=== PATIENT | female | born 1980 | race Caucasian/White ===

== ENCOUNTER 2024-01-29 09:51 | Outpatient (CLI) | payer BC, SELFPAY ==
--- OUTSIDE RECORDS SUMMARY | 2024-01-29 09:56 | XMS_ITS | Clinical Summary ---
Author Organization [facility] Address [place], [place] [address] Care Team Providers Care Cell Lead Name Role Phone Faith Fisher MD Primary Care Provider Allergies Active Allergy Reactions Criticality Noted Date Comments Shellfish Containing Products Itching 2015 Medications Medication Sig Dispensed Refills Start Date End Date Status magnesium citrate 100 mg tab Take by mouth. Active cyanocobalamin (Vitamin B-12) 1,000 mcg tabletIndications:Kiana min B12 deficiency Take 1 Tablet (1,000 mcg) by mouth once daily. 90 Tablet 3 01/02/2021 Active LORazepam (ATIVAN) 0.5 mg tabIndications:General ized anxiety disorder,Panic attacks Take 1 Tablet (0.5 mg) by mouth every 6 hours if needed for Anxiety. 20 Tablet 12/18/2023 Active traZODone (DESYREL) 50 mg tabletIndications:Inso mnia, unspecified type Take 1 Tablet (50 mg) by mouth at bedtime. 90 Tablet 3 12/18/2023 Active Active Problems Problem Noted Date Diagnosed Date Panic attacks 04/20/2023 Insomnia 04/20/2023 Vitamin B12 deficiency 01/02/2021 PMDD (premenstrual dysphoric disorder) Generalized anxiety disorder 12/30/2020 Kidney stone 10/25/2007 Overview (10/29/2007): CT 10/25/2007: 1. Bilateral renal collecting system stones, without current definite evidence of obstruction. The largest stone on the left measures 11 x 5 mm and 13,075 Hounsfield units. At least four additional developing papillary tip stones are seen within the left kidney. 2. Several nonobstructing, developing stones within the right renal collecting system, the largest of which estimates 4 x 2 mm. At least five additional nonobstructing stones are within the right kidney. 3. At least three, 1-cm or less cysts within the right kidney. 4. T-type IUD in situ. Dysthymic disorder 08/01/2007 Pap smear for cervical cancer screening 08/11/19 06 Overview (12/24/2023): 08/2005 ASCUS/HPV + 09/2005 colposcopy: DEON I, age 25 04/2006 ASCUS 11/2011 NIL 08/2014 NIL 12/2020 ASCUS, HPV negative 12/2023 NIL/HPV negative. Plan: Pap/HPV due 12/2028 Resolved Problems Problem Noted Date Diagnosed Date Resolved Date Anxiety 03/23/2023 12/18/2023 Supervision of other normal 08/22/2005 06/16/2022 Encounters Date Type Department Care Team Description 01/22/2024 3:15 PM ACTUARIAL TECHNICIAN Ancillary Procedure [facility] [address] [place] [address] 01/22/2024 2:30 PM ACTUARIAL TECHNICIAN Ancillary Procedure [facility] [address] [place] [address] 01/22/[address] [facility] [address] [place] [address] Faith Fisher MD 01/22/2024 Travel 01/16/2024 12:00 PM ACTUARIAL TECHNICIAN Office Visit [facility] [address] [place] [address] Tony Angel OD Follow Up (Prism Evaluation ) 01/16/2024 Travel 01/03/[address] [facility] [address] [place] [address] Tech, Mammo Results 01/03/[address] [facility] [address] [place] [address] Tech, Mammo Results 01/01/2024 7:20 AM CDT Ancillary Procedure [facility] [address] [place] [address] 01/01/2024 Travel 12/28/2023 11:00 AM CDT Office Visit [facility] [address] [place] [address] Reid Weston MD Consult (Vision changes OU) 12/28/2023 Travel 12/26/2023 4:00 PM CDT Ancillary Procedure [facility] [address] [place] [address] 12/26/2023 Travel 12/18/2023 9:40 AM CDT Office Visit [facility] [address] [place] [address] Faith Fisher MD Physical (With pap); Consult (weight gain, perimenapause symptoms, heavy periods sometimes twice a month, bad cramps, pain during intercourse, check hormone levels, blood sugar, blood pressure etc. ); Referral (Vision issues with motion ) 12/18/2023 Travel from Last 3 Months Immunizations Name Administration Dates Next Due Influenza, IIV3 (Age >=3 years) 01/05/2006 Influenza, IIV4 12/26/2016 Td, Preservative Free (age >= 7 Years) 5 Tdap 01/26/2022 Family History Medical History Relation Name Comments Mental illness Daughter Layla Borderline, O DD, Depression, Anxiety, Eating disorder, possible Bipolar Alcoholism Father Diabetes Father Heart Disease Father Hypertension Father Stroke Father Alcoholism Half-Brother Steve Patient doesn't have much contact with him No Known Problems Half-Sister 1 Janice Unknown Half-Sister 2 Cancer Maternal Grandmother cervica l Depression Mother No Known Problems Son Andrew Cancer-breast No Family History Relation Name Status Comments Daughter Layla Alive Father Half-Brother Steve Alive Half-Sister 1 Janice Alive Half-Sister 2 Unknown Maternal Grandfather Maternal Grandmother Mother Alive Paternal Grandfather Paternal Grandmother Son Andrew Alive Social History Tobacco Use Types Packs/Day Years Used Date Smoking Tobacco: Every Day Cigarettes 0.5 30.9 Started: 1993 Smokeless Tobacco: Never Tobacco Cessation:Ready to Q uit: Yes; Counseling Given: Yes Comments:Less than a pack a day x 10 years Alcohol Use Standard Drinks/Week Comments Yes 8 (1 standard drink = 0.6 oz pure alcohol) 4 times a week; 2-4 drinks at a time PHQ-2 Answer Date Recorded PHQ-2 TOTAL SCORE 0 12/18/2023 Social Connections Answer Date Recorded Do you often feel lonely or isolated from those around you? 0 12/18/2023 Financial Resource Strain Answer Date R ecorded Difficulty of Paying Living Expenses 3 12/18/2023 Difficulty of Paying Living Expenses Not on file 12/18/2023 Food Insecurity Answer Date Recorded Do you worry your food will run out before you are able to buy more? 1 12/18/2023 Transportation Needs Answer Date Record ed Does lack of transportation keep you from medica l appointments? 1 12/18/2023 Does lack of transportation keep you from work, meetings or getting things that you need? 1 12/18/2023 Housing Stability Answer Date Recorded What is your housing situation today? 1 12/18/2023 Sex and Gender Information Value Date Recorded Sex Assigned at Not on file Gender Identity Not on file Sexual Orientation Not on file Obstetrics History Para Term AB IAB SAB Ectopic Multiple Livin g Live Births 2 1 1 2 2 Date Outcome GA Total Labor Labor/2nd/3rd Weight Sex Type Anes PTL Bibiana A1 A5 Name Clin 08/15 40w 0d 3.2 kg (7 lb 1 oz) M Vag Living Andrew 03/12 Term 38w 0d F Vag Living Layla Last Filed Vital Signs Vital Sign Reading Time Taken Comments Blood Pressure 130/84 12/18/2023 9:47 AM CDT Pulse 80 12/18/2023 9:47 AM CDT Temperature 37 C (98.6 F) 06/16/2022 2:54 PM CDT Respiratory Rate 18 06/22/2015 10:4 4 PM CDT Oxygen Saturation 100% 12/18/2023 9:47 AM CDT Inhaled Oxygen Concentration - - Weight 65.6 kg (144 lb 11.2 oz) 12/18/2023 9:47 AM CDT Height 161 cm (5' 3.39) 12/18/2023 9:47 AM CDT Body Mass Index 25.32 12/18/2023 9:47 AM CDT Plan of Treatment Upcoming Encounters Date Type Department Care Team (Late st Contact Info) Description 02/12/2024 4:00 PM ACTUARIAL TECHNICIAN Ancillary Procedure [facility] [address] [place] [address] Health Maintenance Due Date Last Done Comments Pneumococcal series for age 6-64 (1 of 2 - PCV) 06/12/1987 COVID-19 vaccine series (1 - season) 2023 Influenza for age 9-49 11/11/2023 12/26/2016, 2005 BMI (ht and wt on same day) for age 18+ 12/17/2024 12/18/2023, 06/16/2022, 01/26/2022, Additional history exists Depression screening for age 12+ 12/17/2024 12/18/2023, 04/20/2023, 01/26/2022, Additional history exists Pap test for age 21-65 12/17/2028 , 12/30/2020, 12/30/2020, Additional history exists Tetanus booster 01/27/2032 01/26/2022, 08/20/2014 Tdap Completed 01/26/2022 HIV for age 15-65 Completed 12/18/2023 Hepatitis C screening for ag e 18-79 Completed 12/18/2023 Procedures Procedure Name Priority Date/Time Associated Diagnosis Comments US BREAST UNILATERAL RIGHT LIMITED EVA 01/22/2024 3:07 PM ACTUARIAL TECHNICIAN Abnormal mammogram XR MAMMO AMADA UNI ADDL VIEWS RIGHT EVA 01/22/2024 2:52 PM ACTUARIAL TECHNICIAN Abnormal mammogram XR MAMMO AMADA BILAT SCREEN IMPLANT Routine 01/01/2024 7:50 AM CDT Encounter for screening mammogram for malignant neoplasm of breast US PELVIS COMPLETE TA AND TV Routine 12/26/2023 4:23 PM CDT Perimenopause Excessive bleeding in premenopausal period PACKAGE CENTER SUPERVISOR THIN PREP PAP AND HPV DNA - AGE 25 AND OVER ([facility]) Routine 12/18/2023 11:02 AM CDT Pap smear for cervical cancer screening CBC WITH AUTO DIFFERENTIAL Routine 12/18/2023 10:36 AM CDT LIPID PANEL W REFLEX MEASURED LDL Routine 12/18/2023 10:36 AM CDT Screening, lipid HIV 1/2 ANTIGEN/ANTIBODY FOURTH GENERATION W/RFL ([facility]) Routine 12/18/2023 10:36 AM CDT Encounter for screening for HIV ANTI HCV Routine 12/18/2023 10:36 AM CDT Need for hepatitis C screening test HEMOGLOBIN A1C Routine 12/18/2023 10:36 AM CDT Screening for diabetes mellitus VITAMIN B12 Routine 12/18/2023 10:36 AM CDT Perimenopause LYME SCREEN W/REFLEX Routine 12/18/2023 10:36 AM CDT Perimenopause IRON PLUS IRON BINDING CAP Routine 12/18/2023 10:36 AM CDT Perimenopause Excessive bleeding in premenopausal period FERRITIN Routine 12/18/2023 10:36 AM CDT Perimenopause Excessive bleeding in premenopausal period TSH WITH REFLEX Routine 12/18/2023 10:36 AM CDT Perimenopause Excessive bleeding in premenopausal period COMP METABOLIC PANEL Routine 12/18/2023 10:36 AM CDT Perimenopause LUTEINIZING HORMONE Routine 12/18/2023 1 0:36 AM CDT Perimenopause FSH Routine 12/18/2023 10:36 AM CDT Perimenopause from Last 3 Months Results * US BREAST UNILATERAL RIGHT LIMITED (01/22/2024 3:07 PM ACTUARIAL TECHNICIAN) Anatomical Region Laterality Modality BREASTS, Breast Right Right Ultrasound Narrative 01/22/2024 4:00 PM ACTUARIAL TECHNICIAN For Patients: As a result of the Cures Act, medical imaging exams and procedure reports are released immediately into your electronic medical record. You may view this report before your referring provider. If you have questions, please contact your health care provider. RIGHT BREAST ULTRASOUND, 01/22/2024 PLEASE SEE [id number] FOR DIGITAL RIGHT MAMMOGRAM SAME DAY. Faith Fisher MD US * XR MAMMO AMADA UNI ADDL VIEWS RIGHT (01/22/2024 2:52 PM ACTUARIAL TECHNICIAN) Anatomical Region Laterality Modality BREASTS, Breast Right Mammograph y 01/22/2024 3:31 PM ACTUARIAL TECHNICIAN Impressions 01/22/2024 4:00 PM ACTUARIAL TECHNICIAN Suspicious 1.3 cm mass RIGHT breast 1 o'clock 2 cm from the nipple. RECOMMENDATIONS: Ultrasound-guided core needle biopsy. BI-RADS Category 4: Suspicious Dictated by: Rios Barksdale MD @01/22/2024 3:31:35 PM/shaun PATIENTS: You will also receive a letter with your examination results in an easy to read format. If you have questions about your results, please contact your referring provider. Narrative 01/22/2024 4:00 PM ACTUARIAL TECHNICIAN For Patients: As a result of the Cures Act, medical imaging exams and procedure reports are released immediately into your electronic medical record. You may view this report before your referring provider. If you have questions, please contact your health care provider. ADDITIONAL VIEWS RIGHT DIGITAL MAMMOGRAM USING TOMOSYNTHESIS, 01/22/2024 RIGHT BREAST ULTRASOUND, 01/22/2024 CLINICAL HISTORY: RIGHT breast mass/asymmetry. COMPARISON: 01/01/2024. TECHNIQUE: Digital RIGHT mammogram in two projections. Tomosynthesis was used in this interpretation. Real-time ultrasound imaging of RIGHT breast with imaging documentation. Scanning was performed by both the technologist and the radiologist. BREAST COMPOSITION: The breasts are heterogeneously dense, which may obscure small masses. FINDINGS: 3D spot compression CC/MLO RIGHT breast mammogram images submitted. Persistent suspicious mass with architectural distortion and microcalcifications within the upper inner quadrant. Intact implant. Targeted RIGHT breast ultrasound performed at 1 o'clock 2 cm from the nipple. In this location, there is a solid heterogeneous mass measuring 13 x 13 x 11 millimeters. No enlarged axillary lymph nodes. Faith Fisher MD MAMMO * XR MAMMO AMADA BILAT SCREEN IMPLANT (01/01/2024 7:50 AM CDT) Anatomical Region Laterality Modality BREASTS, Breast Left, Breast Right Bilateral Mammography 01/01/2024 2:39 PM CDT Impressions 01/01/2024 4:57 PM CDT RIGHT breast asymmetry/mass. RECOMMENDATIONS: Additional mammographic views of the RIGHT breast including 3D spot-compression CC/MLO. RIGHT breast ultrasound may also be required. A member of the health care team will contact the patient to schedule the required additional imaging appointment. BI-RADS Category 0: Incomplete: Need Additional Imaging Evaluation Dictated by: Rios Barksdale MD @01/01/2024 2:39:02 PM CRL:rcd PATIENTS: You will also receive a letter with your examination results in an easy to read format. If you have questions about your results, please contact your referring provider. Narrative 01/01/2024 4:57 PM CDT For Patients: As a result of the Century Cures Act, medical imaging exams and procedure reports are released immediately into your electronic medical record. You may view this report before your referring provider. If you have questions, please contact your health care provider. BILATERAL DIGITAL SCREENING IMPLANT MAMMOGRAM WITH COMPUTER-AIDED DETECTION AND TOMOSYNTHESIS, 01/01/2024 CLINICAL HISTORY: Routine screening exam. COMPARISON: None. TECHNIQUE: Digital mammogram in CC and MLO projections including computer-aided detection (CAD). Tomosynthesis was used in this interpretation. BREAST COMPOSITION: The breasts are heterogeneously dense, which may obscure small masses. FINDINGS: RIGHT Breast: Architectural distortion is present in the upper inner quadrant, 4 cm from the nipple. Implant is intact. LEFT Breast: No suspicious findings. Intact implant. Faith Fisher MD MAMMO * US PELVIS COMPLETE TA AND TV (12/26/2023 4:23 PM CDT) Anatomical Region Laterality Modality Pelvis Ultrasound 12/30/2023 8:08 AM CDT Impressions 12/30/2023 8:08 AM CDT 1. Complex 2.4 cm cystic structure within the left ovary may relate to recent follicle or cyst rupture. Follow-up ultrasound in 6-8 weeks could be performed to confirm resolution. No left ovarian torsion. 2. Small amount of pelvic free fluid is likely physiologic. 3. Normal right ovary and uterus. Dictated by Denny Steward MD @ 12/30/2023 8:08:01 AM (Electronically Signed) Narrative 12/30/2023 8:08 AM CDT For Patients: As a result of the Cures Act, medical imaging exams and procedure reports are released immediately into your electronic medical record. You may view this report before your referring provider. If you have questions, please contact your health care provider. INDICATION: Heavy irregular periods. TECHNIQUE: Transabdominal and transvaginal pelvic ultrasound. COMPARISON: 10/25/2007. FINDINGS: Uterus measures 7.2 x 5.9 x 3.4 centimeters in size. No uterine mass. The endometrial stripe thickness is 9 millimeters which is within normal limits. Right ovary measures 3.6 x 2.2 x 1.8 centimeters in size. Small follicles are present within the right ovary. Blood flow is detected within the right ovary without findings of torsion. Left ovary measures 3.2 x 2.7 x 2.0 centimeters in size. Complex 2.4 centimeter structure within the left ovary may relate to recent follicle or cyst rupture. Follow-up ultrasound in 6-8 weeks could be performed to confirm resolution. Blood flow is detected within left ovary without findings of torsion. Small amount of pelvic free fluid. Procedure Note Denny Steward MD - 12/30/2023 For Patients: As a result of the Cures Act, medical imagingexams and procedure reports are released immediately into your electronicmedical record. You may view this report before your referring provider.If you have questions, please contact your health care provider. INDICATION: Heavy irregular periods. TECHNIQUE: Transabdominal and transvaginal pelvic ultrasound. COMPARISON: 10/25/2007. FINDINGS: Uterus measures 7.2 x 5.9 x 3.4 centimeters in size. No uterine mass. Theendometrial stripe thickness is 9 millimeters which is within normallimits. Right ovary measures 3.6 x 2.2 x 1.8 centimeters in size. Small folliclesare present within the right ovary. Blood flow is detected within theright ovary without findings of torsion. Left ovary measures 3.2 x 2.7 x 2.0 centimeters in size. Complex 2.4centimeter structure within the left ovary may relate to recent follicleor cyst rupture. Follow-up ultrasound in 6-8 weeks could be performed toconfirm resolution. Blood flow is detected within left ovary withoutfindings of torsion. Small amount of pelvic free fluid. IMPRESSION: 1. Complex 2.4 cm cystic structure within the left ovary may relate torecent follicle or cyst rupture. Follow-up ultrasound in 6-8 weeks couldbe performed to confirm resolution. No left ovarian torsion. 2. Small amount of pelvic free fluid is likely physiologic. 3. Normal right ovary and uterus. Dictated by Denny Steward MD @ 12/30/2023 8:08:01 AM (Electronically Signed) Faith Fisher MD US * PACKAGE CENTER SUPERVISOR THIN PREP PAP AND HPV DNA - AGE 25 AND OVER ([facility]) (12/18/2023 11:02 AM CDT) CLINICAL INFORMATION [facility] Comment:None given LMP [facility] Comment:12/07/2023 PREV. PAP [facility] Comment:ASCUS AND NEGATIVE H PV IN 2020 PREV. BX [facility] Comment:DEON I SOURCE PACKAGE CENTER SUPERVISOR [facility] Comment:Cervix STATEMENT OF ADEQUACY [facility] Comment: Satisfactory for evaluation. Endocervical/transformation zone component absent. INTERPRETATION/RESU LT [facility] Comment: Cytology Results: Negative for intraepithelial lesion or malignancy. COMMENT [facility] Comment: This Pap test has been evaluated with computer assisted technology. ASSISTANT OPERATOR [facility] Comment: RRD, CT(ASCP) CT Screening location: [address] [address] THINPREP TIS PAP ALWAYS MESSAGE [facility] Comment: EXPLANATORY NOTE: The Pap is a screening test for cervical cancer. It is not a diagnostic test and is subject to false negative and false positive results. It is most reliable when a satisfactory sample, regularly obtained, is submitted with relevant clinical findings and history, and when the Pap result is evaluated along with historic and current clinical information. HPV HIGH RISK Not Detected NOT DETECTED [facility] Comment: Not Detected High Risk HPV types (16,18,31,33,35,39,45,51,52, 56,58,59,66,68) were not detected. Other HPV types which cause anogenital lesions may be present. The significance of the other types of HPV in malignant processes has not been established. Methodology: Real Time PCR Other (Other) 12/18/2023 11: 02 AM CDT 12/19/2023 3:47 AM CDT Narrative [facility] [employer] [facility] - 12/21/2023 11:02 PM CDT SPLIT 12/18/2023 FROM [id number] Faith Fisher MD PATHOLOGY/CYTOL OGY [facility] [employer] [facility] [address] [place] [address], [facility] [address] [place] [address] * HIV 1/2 ANTIGEN/ANTIBODY FOURTH GENERATION W/RFL ([facility]) (12/18/2023 10:36 AM CDT) HIV AG/AB, 4TH GEN NON-REACT ROSENDA NON-REACT ROSENDA [facility] Comment: HIV-1 antigen and HIV-1/HIV-2 antibodies were not detected. There is no laboratory evidence of HIV infection. PLEASE NOTE: This information has been disclosed to you from records whose confidentiality may be protected by state law. If your state requires such protection, then the state law prohibits you from making any further disclosure of the information without the specific written consent of the person to whom it pertains, or as otherwise permitted by law. A general authorization for the release of medical or other information is NOT sufficient for this purpose. For additional information please refer to [email or web address].[email or web address]Planet/faq/CVN603 (This link is being provided for informational/ educational purposes only.) The performance of this assay has not been clinically validated in patients less than 2 years old. Blood BLOOD SPECIMEN / Unknown 12/18/2023 10:36 AM CDT 12/18/2023 10:37 AM CDT Narrative [facility] - 12/20/2023 1:12 AM CDT SPECIMEN COLLECTED AT PROVIDER OFFICE. Faith Fisher MD SEND OUTS [employer] [facility] [address] [place] [address], [facility] [address] [place] [address] * CBC WITH AUTO DIFFERENTIAL (12/18/2023 10:36 AM CDT) WHITE BLOOD CELL COUNT 8.8 3.8 - 10.8 Thousand/u L [facility] RED BLOOD CELL COUNT 4.78 3.80 - 5.10 Million/uL [facility] HEMOGLOBIN 15.3 11.7 - 15.5 g/dL [facility] HEMATOCRIT 44.7 35.0 - 45.0 % [facility] MCV 93.5 80.0 - 100.0 fL [facility] MCH 32.0 27.0 - 33.0 pg [facility] MCHC 34.2 32.0 - 36.0 g/dL [facility] Comment: For adults, a slight decrease in the calculated MCHC value (in the range of 30 to 32 g/dL) is most likely not clinically significant; however, it should be interpreted with caution in correlation with other red cell parameters and the patient's clinical condition. RDW 12.0 11.0 - 15.0 % [facility] PLATELET COUNT 284 140 - 400 Thousand/u L [facility] MPV 10.0 7.5 - 12.5 fL [facility] ABSOLUTE NEUTROPHILS 6,204 1,500 - 7,800 cells/uL [facility] ABSOLUTE LYMPHOCYTES 1,980 850 - 3,900 cells/uL [facility] ABSOLUTE MONOCYTES 458 200 - 950 cells/uL [facility] ABSOLUTE EOSINOPHILS 106 15 - 500 cells/uL [facility] ABSOLUTE BASOPHILS 53 0 - 200 cells/uL [facility] NEUTROPHILS 70.5 % [facility] LYMPHOCYTES 22.5 % [facility] MONOCYTES 5.2 % [facility] EOSINOPHILS 1.2 % [facility] BASOPHILS 0.6 % [facility] 12/18/2023 10:3 6 AM CDT 12/18/2023 10:37 AM CDT Narrative [facility] - 12/19/2023 2:38 AM CDT SPECIMEN COLLECTED AT PROVIDER OFFICE. Faith Fisher MD HEMATOLOGY [employer] [address] [place] [address], [facility] [id number] [place] [address] * HEMOGLOBIN A1C (12/18/2023 10:36 AM CDT) HEMOGLOBIN A1C 5.5 <5.7 % of total Hgb [facility] Comment: For the purpose of screening for the presence of diabetes: <5.7% Consistent with the absence of diabetes 5.7-6.4% Consistent with increased risk for diabetes (prediabetes) > or =6.5% Consistent with diabetes This assay result is consistent with a decreased risk of diabetes. Currently, no consensus exists regarding use of hemoglobin A1c for diagnosis of diabetes in children. According to [place] Diabetes Association (ADA) guidelines, hemoglobin A1c <7.0% represents optimal control in non- diabetic patients. Different metrics may apply to specific patient populations. Standards of Medical Care in Diabetes(ADA). Blood BLOOD SPECIMEN / Unknown 12/18/2023 10:36 AM CDT 12/18/2023 10:37 AM CDT Narrative [facility] - 12/19/2023 3:41 AM CDT SPECIMEN COLLECTED AT PROVIDER OFFICE. Faith Fisher MD CHEMISTRY [employer] [facility] [address] [place] [address], [facility] [address] [place] [address] * TSH WITH REFLEX (12/18/2023 10:36 AM CDT) TSH W/REFLEX TO FT4 2.20 mIU/L [facility] Comment: Reference Range > or = 20 Years 0.40-4.50 Ranges First trimester 0.26-2.66 Second trimester 0.55-2.73 Third trimester 0.43-2.91 Blood BLOOD SPECIMEN / Unknown 12/18/2023 10:36 AM CDT 12/18/2023 10:37 AM CDT Narrative [facility] - 12/19/2023 10:28 AM CDT SPECIMEN COLLECTED AT PROVIDER OFFICE. Faith Fisher MD CHEMISTRY [employer] [facility] [address] [place] [address], [facility] [address] [place] [address] * (ABNORMAL) LIPID PANEL W REFLEX MEASURED LDL (12/18/2023 10:36 AM CDT) CHOLESTEROL, TOTAL 211(H) <200 mg/dL [facility] HDL CHOLESTEROL 87 > OR = 50 mg/dL [facility] TRIGLYCERIDES 122 <150 mg/dL [facility] LDL-CHOLESTEROL 102(H) mg/dL (calc) [facility] Comment: Reference range: <100 Desirable range <100 mg/dL for primary prevention; <70 mg/dL for patients with CHD or diabetic patients with > or = 2 CHD risk factors. LDL-C is now calculated using the Cal calculation, which is a validated novel method providing better accuracy than the Friedewald equation in the estimation of LDL-C. Gerald HELMS et al. KIRK. 2013;310(19): 0616-4080 (http://education.News360/faq/OOS507) CHOL/HDLC RATIO 2.4 <5.0 (calc) [facility] NON HDL CHOLESTEROL 124 <130 mg/dL (calc) [facility] Comment: For patients with diabetes plus 1 major ASCVD risk factor, treating to a non-HDL-C goal of <100 mg/dL (LDL-C of <70 mg/dL) is considered a therapeutic option. Blood BLOOD SPECIMEN / Unknown 12/18/2023 10:36 AM CDT 12/18/2023 10:37 AM CDT Narrative [facility] - 12/19/2023 10:28 AM CDT SPECIMEN COLLECTED AT PROVIDER OFFICE. Faith Fisher MD CHEMISTRY [employer] [facility] [address] [place] [address], [facility] [address] [place] [address] * IRON PLUS IRON BINDING CAP (12/18/2023 10:36 AM CDT) [facility] IRON, TOTAL 113 40 - 190 mcg/dL [facility] IRON BINDING CAPACITY 363 250 - 450 mcg/dL (calc) [facility] % SATURATION 31 16 - 45 % (calc) [facility] Blood BLOOD SPECIMEN / Unknown 12/18/2023 10:36 AM CDT 12/18/2023 10:37 AM CDT Narrative [facility] - 12/19/2023 10:28 AM CDT SPECIMEN COLLECTED AT PROVIDER OFFICE. Faith Fisher MD CHEMISTRY [employer] [facility] [address] [place] [address], [facility] [address] [place] [address] * ANTI HCV (12/18/2023 10:36 AM CDT) HEPATITIS C ANTIBODY NON-REACTI VE NON-REACT ROSENDA [facility] Comment: HCV antibody was non-reactive. There is no laboratory evidence of HCV infection. In most cases, no further action is required. However, if recent HCV exposure is suspected, a test for HCV RNA (test code 60710) is suggested. For additional information please refer to http://education.Wikibon/faq/SBE91z8 (This link is being provided for informational/ educational purposes only.) Blood BLOOD SPECIMEN / Unknown 12/18/2023 10:36 AM CDT 12/18/2023 10:37 AM CDT Narrative [facility] - 12/20/2023 1:12 AM CDT SPECIMEN COLLECTED AT PROVIDER OFFICE. Faith Fisher MD SEND OUTS Performing Organization Address [facility]/ZIP Co de Phone Number [employer] [address] [place] [address], [facility] [address] [place] [phone] * LYME SCREEN W/REFLEX (12/18/2023 10:36 AM CDT) LYME AB, SCREEN < or = 0.90 index [facility], Comment: REFERENCE RANGE: < OR = 0.90 Index Index Interpretation < OR = 0.90 NEGATIVE 0.91 - 1.09 EQUIVOCAL > OR = 1.10 POSITIVE This assay measures Lyme Disease (Borrelia burgdorferi) IgG plus IgM antibodies; it does not distinguish results that are both IgG and IgM positive from results that are either IgG or IgM positive. As recommended by the Centers for Disease Control and Prevention (CDC), all samples with positive or equivocal results in this screening assay will be tested using separate supplemental Lyme IgG and IgM immunoassays. Positive or equivocal screening assay results should not be interpreted as truly positive until verified as such using the supplemental assays. Screening and/or supplemental tests for Lyme disease antibodies may be falsely negative in early stages of Lyme disease, including the period when erythema migrans is apparent. These assays may be falsely positive in patients with other spirochetal diseases (e.g., syphilis) or infectious mononucleosis. Blood BLOOD SPECIMEN / Unknown 12/18/2023 10:36 AM CDT 12/18/2023 10:37 AM CDT Narrative [facility] [facility] - 12/21/2023 8:29 PM CDT SPECIMEN COLLECTED AT PROVIDER OFFICE. Faith Fisher MD SEND OUTS Performing Organization Address [facility] Co de Phone Number [facility] [address] [place] [address], [facility], [address] [place] [address] * LUTEINIZING HORMONE (12/18/2023 10:36 AM CDT) [facility] LH 11.8 mIU/mL [facility] Comment: Reference Range Follicular Phase 1.9-12.5 Mid-Cycle Peak 8.7-76.3 Luteal Phase 0.5-16.9 Postmenopausal 10.0-54.7 Blood BLOOD SPECIMEN / Unknown 12/18/2023 10:36 AM CDT 12/18/2023 10:37 AM CDT Narrative [facility] - 12/19/2023 10:28 AM CDT SPECIMEN COLLECTED AT PROVIDER OFFICE. Faith Fisher MD CHEMISTRY Performing Organization Address [facility]/ZIP Co de Phone Number [employer] [facility] [address] [place] [address], [facility] [address] [place] [address] * FSH (12/18/2023 10:36 AM CDT) Pathologist [facility] FSH 7.0 mIU/mL [facility] Comment: Reference Range Follicular Phase 2.5-10.2 Mid-cycle Peak 3.1-17.7 Luteal Phase 1.5- 9.1 Postmenopausal 23.0-116.3 Blood BLOOD SPECIMEN / Unknown 12/18/2023 10:36 AM CDT 12/18/2023 10:37 AM CDT Narrative [facility] - 12/19/2023 10:28 AM CDT SPECIMEN COLLECTED AT PROVIDER OFFICE. Faith Fisher MD CHEMISTRY Performing Organization Address City/[facility]/ZIP Co de Phone Number [employer] [facility] [address] [place] [address], [place] [phone] [facility] [address] [place] [address] * FERRITIN (12/18/2023 10:36 AM CDT) [facility] FERRITIN 29 16 - 232 ng/mL [facility] Blood BLOOD SPECIMEN / Unknown 12/18/2023 10:36 AM CDT 12/18/2023 10:37 AM CDT Narrative [facility] - 12/19/2023 10:28 AM CDT SPECIMEN COLLECTED AT PROVIDER OFFICE. Faith Fisher MD CHEMISTRY [employer] [facility] [address] [place] [address], [place] [phone] [facility] [address] [place] [address] * VITAMIN B12 (12/18/2023 10:36 AM CDT) [facility] VITAMIN B12 623 200 - 1,100 pg/mL [facility] Blood BLOOD SPECIMEN / Unknown 12/18/2023 10:36 AM CDT 12/18/2023 10:37 AM CDT Narrative [facility] - 12/19/2023 10:28 AM CDT SPECIMEN COLLECTED AT PROVIDER OFFICE. Faith Fisher MD CHEMISTRY [employer] [facility] [address] [place] [address], [facility] [address] [place] [address] * (ABNORMAL) COMP METABOLIC PANEL (12/18/2023 10:36 AM CDT) GLUCOSE 96 65 - 99 mg/dL [facility] Comment: Fasting reference interval UREA NITROGEN (BUN) 13 7 - 25 mg/dL [facility] CREATININE 0.85 0.50 - 0.99 mg/dL [facility] EGFR 88 > OR = 60 mL/min/1. 73m2 [facility] BUN/CREATININE RATIO SEE NOTE: 6 - 22 (calc) [facility] Comment: Not Reported: BUN and Creatinine are within reference range. SODIUM 138 135 - 146 mmol/L [facility] POTASSIUM 3.9 3.5 - 5.3 mmol/L [facility] CHLORIDE 105 98 - 110 mmol/L [facility] CARBON DIOXIDE 23 20 - 32 mmol/L [facility] CALCIUM 9.3 8.6 - 10.2 mg/dL [facility] PROTEIN, TOTAL 6.3 6.1 - 8.1 g/dL [facility] ALBUMIN 4.5 3.6 - 5.1 g/dL [facility] GLOBULIN 1.8(L) 1.9 - 3.7 g/dL (calc) [facility] ALBUMIN/GLOBULIN RATIO 2.5 1.0 - 2.5 (calc) [facility] BILIRUBIN, TOTAL 0.8 0.2 - 1.2 mg/dL [facility] ALKALINE PHOSPHATASE 56 31 - 125 U/L [facility] AST 13 10 - 30 U/L [facility] ALT 9 6 - 29 U/L [facility] Blood BLOOD SPECIMEN / Unknown 12/18/2023 10:36 AM CDT 12/18/2023 10:37 AM CDT Narrative [facility] - 12/19/2023 10:28 AM CDT SPECIMEN COLLECTED AT PROVIDER OFFICE. Faith Fisher MD CHEMISTRY [facility] [address] [place] [address], [facility] [address] [place] [address] from Last 3 Months Advance Directives * Full Code (Latest Code Status on File) Date Activated Date Inactivated Comments 07/20/2008 2:23 AM 07/22/2008 4:17 PM Care Teams Cell Lead Relationship Specialty [place] [id number] [place] [address] PCP - General Family Practice 12/18/23
--- NOTE | 2024-01-29 10:15 | CRLHL7_ITS ---
For Patients: As a result of the Century Cures Act, medical imaging exams and procedure reports are released immediately into your electronic medical record. You may view this report before your referring provider. If you have questions, please contact your health care provider. ULTRASOUND-GUIDED BREAST BIOPSY AND POST-BIOPSY DIGITAL MAMMOGRAM FOR BIOPSY MARKER PLACEMENT CLINICAL HISTORY: Indeterminate mass. COMPARISON STUDIES: 01/22/2024, 01/01/2024. TECHNIQUE: Real-time ultrasound with image documentation was used for targeting the breast lesion. Core biopsy specimens were obtained using an automated gun with an 18-gauge biopsy needle. Post-biopsy CC and ML digital mammograms were obtained to document position of the biopsy marker. CONSENT and TIME OUT: The procedure, risks, and alternatives were explained to the patient and a consent was signed. Graham Protocol was followed including pre-procedure verification that relevant information/documentation was available, reviewed and properly matched to the patient; consent accurate and complete; and equipment and supplies available. Time Out was conducted just prior to starting procedure to verify the four required elements: patient identity, correct side/site marked (if applicable), procedure, relevant images/results properly labeled and displayed (if applicable). PROCEDURE: The patient was positioned supine on the ultrasound table. The breast was prepped with ChloraPrep. 8 cc of 1 percent lidocaine used for local anesthesia. Core samples were obtained. A sterile metal biopsy clip was placed percutaneously to renee the lesion position within the breast. The specimens were placed in 10% formalin and sent to the pathology department. Pressure was held on the biopsy site until all bleeding subsided. The skin incision was closed with Steri-Strips. An ice pack was positioned over the biopsy site. Post-biopsy instructions were reviewed with the patient, and a written copy was given to her. LATERALITY: RIGHT breast. LESION: Spiculated ill-defined hypoechoic mass measuring 13 x 13 x 11 millimeters at 1 o`clock 2 cm from the nipple. SUSPICION FOR MALIGNANCY: High. NUMBER OF SAMPLES: 5. BIOPSY CLIP SHAPE: Oval. PROXIMITY OF CLIP TO TARGET: Within the lesion. IMPRESSION: Ultrasound-guided breast biopsy. When the pathology report is available, an addendum to this report will be made. ACR not applicable Dictated by Rios Barksdale MD @ 01/29/2024 11:23:24 AM jj/Dictated by: Rios Barksdale MD @ 01/29/2024 11:23:00 AM (Electronically Signed)
--- NOTE | 2024-01-29 11:00 | CRLHL7_ITS ---
For Patients: As a result of the Century Cures Act, medical imaging exams and procedure reports are released immediately into your electronic medical record. You may view this report before your referring provider. If you have questions, please contact your health care provider. PLEASE SEE ULTRASOUND-GUIDED RIGHT BREAST BIOPSY PERFORMED SAME DAY CRL:shaun dunn/Dictated by: Rios Barksdale MD @ 01/29/2024 11:23:00 AM (Electronically Signed)
== END 2024-01-29 09:52 | disposition home or self-care (01) ==
PROVIDERS: PCP Family Medicine; Visit Provider Family Medicine
DX: N63.10 Unspecified lump in the right breast, unspecified quadrant (principal); R92.8 Other abnormal and inconclusive findings on diagnostic imaging of breast
CPT/HCPCS: 19083; 77065; 88305; A4648; A4649

== ENCOUNTER 2024-02-22 09:53 | Day surgery (SDC) | payer BC, SELFPAY ==
[2024-02-22 10:34] VITALS: BMI 24.7
[2024-02-22 10:42] VITALS: BP 110/74; PULSE 60; RESP 16; TEMP 36.8; O2SAT 99
[2024-02-22] MEDS: SODIUM CHLORIDE 0.9 % (FLUSH) 10 ML SYRINGE IVF (10:45)
[2024-02-22] MEDS: 0.9 % SODIUM CHLORIDE 500 ML 500 ML 100 ML IV (11:04)
--- NOTE | 2024-02-22 11:30 | CRLHL7_ITS ---
For Patients: As a result of the Cures Act, medical imaging exams and procedure reports are released immediately into your electronic medical record. You may view this report before your referring provider. If you have questions, please contact your health care provider. BREAST WIRE LOCALIZATION USING ULTRASOUND GUIDANCE CLINICAL HISTORY: RADIAL SCAR OF RIGHT BREAST. LATERALITY: RIGHT breast. LESION: Complex heterogeneous solid area within the RIGHT breast previously biopsied. LOCALIZATION WIRE: Kopans hookwire. TECHNIQUE: The localization wire was placed using real-time ultrasound guidance with image documentation. Cranial-caudal and medial-lateral digital mammograms were obtained after localization wire placement. CONSENT and TIME OUT: The procedure, risks, and alternatives were explained to the patient and a consent was signed. Mears Protocol was followed including pre-procedure verification that relevant information/documentation was available, reviewed and properly matched to the patient; consent accurate and complete; and equipment and supplies available. Time Out was conducted just prior to starting procedure to verify the four required elements: patient identity, correct side/site marked (if applicable), procedure, relevant images/results properly labeled and displayed (if applicable). PROCEDURE: The skin was prepped with ChloraPrep and 3 cc of 1% lidocaine was injected for local anesthesia. The localization wire was placed within or near the targeted breast lesion using ultrasound guidance. The patient tolerated the procedure well. PROXIMITY OF WIRE TO LESION: The wire is located within the lesion. IMPRESSION: Successful breast wire localization. ACR not applicable Dictated by Rios Barksdale MD @ 02/22/2024 12:53:39 PM jj/Dictated by: Rios Barksdale MD @ 02/22/2024 12:53:00 PM (Electronically Signed)
--- NOTE | 2024-02-22 12:02 | CRLHL7_ITS ---
For Patients: As a result of the Cures Act, medical imaging exams and procedure reports are released immediately into your electronic medical record. You may view this report before your referring provider. If you have questions, please contact your health care provider. XRAY RIGHT BREAST SPECIMEN CLINICAL HISTORY: Radial scar. COMPARISON: 01/22/2024, 01/29/2024. FINDINGS: Two views of the RIGHT breast specimen submitted. The specimen contains the biopsy clip, the biopsied lesion and the localization wire. IMPRESSION: Specimen contains the localization wire, biopsy clip and the biopsied lesion. ACR not applicable. Dictated by Rios Barksdale MD @ 02/22/2024 1:33:14 PM /sp SP/Dictated by: Rios Barksdale MD @ 02/22/2024 1:33:00 PM (Electronically Signed)
--- NOTE | 2024-02-22 12:15 | CRLHL7_ITS ---
For Patients: As a result of the Cures Act, medical imaging exams and procedure reports are released immediately into your electronic medical record. You may view this report before your referring provider. If you have questions, please contact your health care provider. SEE ULTRASOUND-GUIDED RIGHT BREAST WIRE LOCALIZATION PERFORMED SAME DAY CRL:shaun dunn/Dictated by: Rios Barksdale MD @ 02/22/2024 12:49:00 PM (Electronically Signed)
[2024-02-22] MEDS: CEFAZOLIN 2 GM INJ IVP (12:20)
[2024-02-22] MEDS: BUPIVACAINE 0.25% 30 ML INJECTION (13:09)
[2024-02-22] MEDS: LIDOCAINE 1% MDV 20 ML INJECTION (13:09)
[2024-02-22 13:22] VITALS: BP 102/69; PULSE 78; RESP 16; TEMP 36.4; O2SAT 96
--- NOTE | 2024-02-22 13:23 | W.ANESCHARGE ---
Anesthesia Charges Start Date/Time Anesthesia Start Date: 02/22/24 Anesthesia Start Time: 12:16 Stop Date/Time Anesthesia Stop Date: 02/22/24 Anesthesia Stop Time: 13:22
--- NOTE | 2024-02-22 13:28 | P.GSOP_ITS ---
Operative Note Date of procedure: 02/22/24 Pre-op diagnosis: Right breast mass Post-op diagnosis: Same Type of Procedure: Right breast lumpectomy Indications: Patient is a 43-year-old female with a suspicious mass of the right breast. Core biopsy demonstrated proliferative fibrocystic changes including nodular sclerosing adenosis fragments of a radial scar. Recommendations for surgical excision. Risks and benefits of operative intervention were discussed at length with the patient. Risks included but was not limited to: Bleeding, infection, risk of damage to surrounding structures, possible need for additional procedures and postoperative complications such as pneumonia, pulmonary emboli or AL. All questions and concerns were addressed with the patient agreeing to proceed. Procedure Description: Prior to arrival in the operating room, the patient was taken to radiology where a wire was placed to localize the previously placed clip. The patient was then brought to the operating room where anesthesia was induced. The right breast and axilla were prepped and draped in the usual sterile fashion. Timeout was confirmed. Local anesthesia was infiltrated into a curvilinear incision in the 12 o'clock position at the location of the tip of the wire. Using electrocautery, the segment of breast tissue containing the tip of the wire was excised. Patient has very dense breast tissue as well as bilateral implants in place. Care was taken not to disrupt the capsule surroun ding the right implant. The specimen was sent for evaluation. Radiology called back and confirmed that the clip and wire were present within the specimen. The wounds was irrigated and all irrigant suctioned from the wound. Hemostasis was assured. Additional local anesthesia was infiltrated. The wounds were then closed in layers using absorbable suture, and Dermbond was placed over the wounds. An Mick wrap was placed to assist with compression. The patient was awakened without incident and taken to PACU in stable condition. Sponge, needle and instrument counts were correct x3 at the termination of the case. Findings: Right breast mass Anesthesia: MAC and local Surgeon: Camila Decker MD Estimated blood loss (mL): 10 Additional Specimen Information: Right breast mass Condition: stable Disposition: same day
[2024-02-22 13:30] VITALS: BP 107/78; PULSE 66; RESP 16; O2SAT 97
[2024-02-22] MEDS: HYDROCODONE-ACETAMIN 5-325 MG 1 TAB PO (13:32)
--- NOTE | 2024-02-22 13:33 | W.PM.H&PU ---
History & Physical Update History & Physical Update H&P Reviewed and patient assessed: No changes noted
[2024-02-22 13:45] VITALS: BP 116/73; PULSE 58; RESP 16; O2SAT 98
--- NOTE | 2024-02-22 13:49 | W.ANESCHARGE ---
Anesthesia Charges Start Date/Time Anesthesia Start Date: 02/22/24 Anesthesia Start Time: 12:16 Stop Date/Time Anesthesia Stop Date: 02/22/24 Anesthesia Stop Time: 13:22
== END 2024-02-22 14:45 | disposition home or self-care (01) ==
PROVIDERS: PCP Family Medicine; Visit Provider Surgery
PROC: (CPT 19125; principal; 2024-02-22 12:15)
PROC: (CPT 19125; 2024-02-22 12:15)
DX: N63.12 Unspecified lump in the right breast, upper inner quadrant (principal)
CPT/HCPCS: 19125; 00400; 19285; 77065; 88305; 88341; 88342; J2003; A9270; C1769; J0665; J0690; J1100; J1885; J2405; J2704; J3010; J3490; J7030

== ENCOUNTER 2024-11-01 12:56 | Outpatient (CLI) | payer BC, SELFPAY | END 2024-11-01 12:57 | disposition home or self-care (01) | PROVIDERS: PCP Family Medicine; Visit Provider Internal Medicine | DX: R07.89 Other chest pain (principal) | CPT/HCPCS: A0425; A0427 ==

== ENCOUNTER 2024-11-01 13:33 | Emergency (ER) | payer BC, SELFPAY ==
[2024-11-01] VITALS (31 sets, daily range): BP systolic 114–153; BP diastolic 76–103; PULSE 56–99; RESP 12–25; TEMP 37; O2SAT 95–100; BMI 25.5
--- NOTE | 2024-11-01 | CT_ITS ---
Patient: [facility] Facility:?[facility] RIS Patient ID:?[id number] Site Patient ID:?[id number]. Site :?[id number] Study:?CT-Neck Angio Angio W/ 95CC [id number]/23/2025 3:33:05 PM Ordering Physician:Peter Whitmore Final Report: DATE: 11/01/2024 CLINICAL HISTORY: Patient with headaches. TECHNIQUE: Standard helical CT image acquisition through the head and neck was performed after intravenous contrast bolus enhancement. 2D and 3D MIP images for post- processing were performed and interpreted on an independent workstation and 3D images were permanently archived. COMPARISON: CT same day. FINDINGS: The origins of the great vessels from the aortic arch are patent. The origin of the right vertebral artery is patent. The origin of the left vertebral artery is patent. The common carotid arteries are patent There is no stenosis at the origin of the right internal carotid artery. There is no stenosis at the origin of the left internal carotid artery. The rest of the cervical segments of the internal carotid arteries are patent up to their intracranial segments. The intracranial segments of the internal carotid arteries are patent. The vertebral arteries are codominant. The cervical segments of the vertebral arteries are patent. The intracranial segments of the vertebral arteries are patent. The middle cerebral arteries are normal without aneurysm or proximal occlusion identified. The anterior cerebral arteries are normal without aneurysm or proximal occlusion identified. The anterior communicating artery is well visualized and appears normal. The basilar artery is normal without aneurysm or occlusion. The posterior cerebral arteries are normal without aneurysm or proximal occlusion. There is normal opacification of major intracranial venous structures. The visualized lung apices are unremarkable The thyroid gland is unremarkable. The soft tissues of the neck are unremarkable. There are degenerative changes in the cervical spine. IMPRESSION: Normal CT angiogram of the head and neck. Please note that all CT scans at this facility use dose modulation, iterative reconstruction, and/or weight-based dosing when appropriate to reduce radiation dose to as low as reasonably achievable. Dictated by Rustam Liao MD @ 11/01/2024 7:11:34 PM Signed by:?Rustam Liao MD @11/01/2024 7:11:34 PM (Electronic Signature)
--- OUTSIDE RECORDS SUMMARY | 2024-11-01 13:35 | XMS_ITS | Clinical Summary ---
Author Organization [facility] Address [address] [place] [address] Care Team Providers Care Special Skills Officer Name Role Phone Faith Fisher MD Primary Care Provider Allergies Active Allergy Reactions Criticality Noted Date Comments Shellfish Containing Products Itching 2015 Medications magnesium citrate 100 mg tab Take by mouth. Active LORazepam (ATIVAN) 0.5 mg tabIndications:G eneralized anxiety disorder,Panic attacks Take 1 Tablet (0.5 mg) by mouth every 6 hours if needed for Anxiety. 20 Tablet 4 Active traZODone (DESYREL) 50 mg tabletIndication s:Insomnia, unspecified type Take 1 Tablet (50 mg) by mouth at bedtime. 90 Tablet 3 4 Active polyethylene glycoL (Miralax) 17 gram/scoop powder Mix 1 scoop in liquid then take by mouth. Active naltrexone (REVIA) 50 mg tabletIndication s:Alcohol use Take 1 Tablet (50 mg) by mouth once daily. 30 Tablet 5 Active propranoloL 20 mg tabletIndication s:Palpitations,G eneralized anxiety disorder Take 1 Tablet (20 mg) by mouth two times daily. 180 Tablet 5 Active cyanocobalamin (Vitamin B-12) 1,000 mcg tabletIndication s:Vitamin B12 deficiency Take 1 Tablet (1,000 mcg) by mouth once daily. 90 Tablet 3 1 11/01/19 25 Discontinu ed(*Patien t states no longer taking) sennosides (Senna) 8.6 mg tablet Take 17.2 mg by mouth once daily. 11/01/19 25 Discontinu ed(*Patien t states no longer taking) Active Problems Problem Noted Date Diagnosed Date [...] Encounters Date Type Department Care Team Description 10/31/2024 10:15 AM CDT Nurse/Clinic [place] [facility] [place] [address] [place] [address] Device Check (Zio 7 DAYS) 10/31/2024 9:05 AM CDT [place] [facility] [place] [address] [place] [address] Shania Dorsey, Headache (Pressure headaches for the last week); Palpitations (Heart racing at rest); Arm Pain/problem (Throbbing pain down left arm and left side of neck. ) 10/31/2024 Travel 09/24/2024 Telephone [facility] [address] [place] [address] Risa Harley CNM from Last 3 Months Immunizations Immunization Administration Dates Next Due Influenza, IIV3 (Age [...] Depression Mother No Known Problems Son Andrew Anesthesia Problem No Family History Blood Disease No Family History Cancer-breast No Family History Clotting disorder No Family History Relation Name Status Comments Daughter Layla Alive Father Half-Brother Steve Alive Half-Sister 1 Janice Alive Half-Sister 2 Unknown Maternal Grandfather Maternal Grandmother Mother Alive Paternal Grandfather Paternal Grandmother Son Andrew Alive Social History Tobacco Use Types Packs/Day Years Used Date Smoking Tobacco: Every Day Cigarettes 0.5 30.9 Started: 1993; Last attempted to quit: 02/01/2024 Smokeless Tobacco: Never Tobacco Cessation:Ready to Q uit: Not Asked; Counseling Given: Not Answered Comments:Less than a pack a day x 10 years--QUIT 02/01/24 Alcohol Use Standard Drinks/Week Comments Yes 8 (1 standard drink = 0.6 oz pur e alcohol) 2 drinks 2 times a week PHQ-2 Answer Date Recorded PHQ-2 TOTAL SCORE 1 10/31/2024 Social Connections Answer Date Recorded Do you [...] is your housing situation today? 1 12/18/2023 Utilities Answer Date Recorded Do you have trouble paying f or utilities (for example, heat, electricity, water, phone)? 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 Not on file Not on file Obstetrics History Para Term [...] Sign Reading Time Taken Comments Blood Pressure 144/98 10/31/2024 9:07 AM CDT Pulse 88 10/31/2024 9:01 AM CDT Temperature 37 C (98.6 F) 06/16/2022 2:54 PM CDT Respiratory Rate 18 06/22/2015 10:44 PM CDT Oxygen Saturation 99% 10/31/2024 9:01 AM CDT Inhaled Oxygen Concentration - - Weight 65.3 kg (144 lb) 10/31/2024 9:01 AM CDT Height 161 cm (5' 3.39) 10/31/2024 9:01 AM CDT Body Mass Index 25.2 10/31/2024 9:01 AM CDT Plan of Treatment Upcoming Encounters Date Type Department Care Team (Late st Contact Info) Description 12/01/2024 11:15 AM CDT [place] [facility] [place] [address] [place] [address] WillianShania SammiDO [address] [place] [address] Health Maintenance Due Date Last Done Comments Hepatitis B series for 19+ ( 1 of 3 - 19+ 3-dose series) 2000 Pneumococcal series for age 6-49 (1 of 2 - PCV) 2000 COVID-19 vaccine series ( - 2023- season) 2023 Influenza Vaccine (#1) 2024 12/26/2016, 2005 BMI (ht and wt on same day) for age 18+ 10/31/2025 10/31/2024, 02/13/2024, 12/18/2023, Additional history exists Depression screening for age 12+ 10/31/2025 10/31/2024, 12/18/2023, 04/20/2023, Additional history exists Pap test for age 21-65 12/17/2028 , 12/30/2020, 12/30/2020, Additional history exists Tetanus booster 01/27/2032 01/26/2022, 08/20/2014 HIV for age 15-65 Completed 12/18/2023 Hepatitis C screening for ag e 18-79 Completed 12/18/2023 Procedures Procedure Name Priority Date/Time Associated Diagnosis Comments CBC WITH AUTO DIFFERENTIAL Routine 10/31/2024 10:02 AM CDT Palpitations VITAMIN D 25 (DEFICIENCY) Routine 10/31/2024 10:02 AM CDT Vitamin D deficiency FOLIC ACID Routine 10/31/2024 10:02 AM CDT Alcohol use VITAMIN B12 Routine 10/31/2024 10:02 AM CDT Alcohol use HEMOGLOBIN A1C Routine 10/31/2024 10:02 AM CDT Diabetes mellitus screening LIPID PANEL W REFLEX MEASURED LDL Routine 10/31/2024 10:02 AM CDT Lipid screening COMP METABOLIC PANEL Routine 10/31/2024 10:02 AM CDT Alcohol use Fatigue, unspecified type CBC WITH AUTO DIFFERENTIAL Routine 10/31/2024 10:02 AM CDT Palpitations TSH WITH REFLEX Routine 10/31/2024 10:02 AM CDT Palpitations MOTHERS HELPER THIN PREP PAP AND HPV DNA - AGE 25 AND OVER ([facility]) Routine 12/18/2023 11:02 AM CDT Pap smear for cervical cancer screening HIV 1/2 ANTIGEN/ANTIBODY FOURTH GENERATION W/RFL ([facility]) Routine 12/18/2023 10:36 AM CDT Encounter for screening for HIV ANTI HCV Routine 12/18/2023 10:36 AM CDT Need for hepatitis C screening test from Last 3 Months or Most Recently Relevant to Health Maintenance Results * (ABNORMAL) CBC WITH AUTO DIFFERENTIAL (10/31/2024 10:02 AM CDT) WHITE BLOOD CELL COUNT 7.9 3.8 - 10.8 Thousand/ uL 11/01/2024 2:40 AM CDT [facility] RED BLOOD CELL COUNT 4.87 3.80 - 5.10 Million/u L 11/01/2024 2:40 AM CDT [facility] HEMOGLOBIN 15.5 11.7 - 15.5 g/dL 11/01/2024 2:40 AM CDT [facility] HEMATOCRIT 46.0(H) 35.0 - 45.0 % 11/01/2024 2:40 AM CDT [facility] MCV 94.5 80.0 - 100.0 fL 11/01/2024 2:40 AM CDT [facility] MCH 31.8 27.0 - 33.0 pg 11/01/2024 2:40 AM CDT [facility] MCHC 33.7 32.0 - 36.0 g/dL 11/01/2024 2:40 AM CDT [facility] Comment: For adults, a slight decrease in the calculated MCHC value (in the range of 30 to 32 g/dL) is most likely not clinically significant; however, it should be interpreted with caution in correlation with other red cell parameters and the patient's clinical condition. RDW 12.3 11.0 - 15.0 % 11/01/2024 2:40 AM CDT [facility] PLATELET COUNT 278 140 - 400 Thousand/ uL 11/01/2024 2:40 AM CDT [facility] MPV 10.3 7.5 - 12.5 fL 11/01/2024 2:40 AM CDT [facility] NEUTROPHILS 65.7 % 11/01/2024 2:40 AM CDT [facility] LYMPHOCYTES 25.6 % 11/01/2024 2:40 AM CDT [facility] MONOCYTES 6.8 % 11/01/2024 2:40 AM CDT [facility] EOSINOPHILS 1.4 % 11/01/2024 2:40 AM CDT [facility] BASOPHILS 0.5 % 11/01/2024 2:40 AM CDT [facility] ABSOLUTE NEUTROPHILS 5190 1500 - 7800 cells/uL 11/01/2024 2:40 AM CDT [facility] ABSOLUTE LYMPHOCYTES 2022 850 - 3900 cells/uL 11/01/2024 2:40 AM CDT [facility] ABSOLUTE MONOCYTES 537 200 - 950 cells/uL 11/01/2024 2:40 AM CDT [facility] ABSOLUTE EOSINOPHILS 111 15 - 500 cells/uL 11/01/2024 2:40 AM CDT [facility] ABSOLUTE BASOPHILS 40 0 - 200 cells/uL 11/01/2024 2:40 AM CDT [facility] Blood BLOOD SPECIMEN / Unknown [facility] / Unknown 10/31/2024 10:02 AM CDT 10/31/2024 10:02 AM CDT us Shania Dorsey DO HEMATOLOGY Final Resul t [facility] [address] [place] [address], * HEMOGLOBIN A1C (10/31/2024 10:02 AM CDT) HEMOGLOBIN A1C 5.4 <5.7 % 11/01/2024 4:04 AM CDT [facility] Comment: For the purpose of screening for the presence of diabetes: <5.7% Consistent with the absence of diabetes 5.7-6.4% Consistent with increased risk for diabetes (prediabetes) > or =6.5% Consistent with diabetes This assay result is consistent with a decreased risk of diabetes. Currently, no consensus exists regarding use of hemoglobin A1c for diagnosis of diabetes in children. According to [place] Diabetes Association (ADA) guidelines, hemoglobin A1c <7.0% represents optimal control in non- diabetic patients. Different metrics may apply to specific patient populations. Standards of Medical Care in Diabetes(ADA). Blood BLOOD SPECIMEN / Unknown [facility] / Unknown 10/31/2024 10:02 AM CDT 10/31/2024 10:02 AM CDT Shania Dorsey DO CHEMISTRY Final Resul t Performing Organization Address [facility]/ZIP Co de Phone Number [facility] [address] [address], [place] [phone] * TSH WITH REFLEX (10/31/2024 10:02 AM CDT) TSH W/REFLEX TO FT4 1.98 mIU/L 11/01/2024 3:36 AM CDT [facility] Comment: Reference Range > or = 20 Years 0.40-4.50 Ranges First trimester 0.26-2.66 Second trimester 0.55-2.73 Third trimester 0.43-2.91 Blood BLOOD SPECIMEN / Unknown [facility] / Unknown 10/31/2024 10:02 AM CDT 10/31/2024 10:02 AM CDT Shania Dorsey DO CHEMISTRY Final Resul t Performing Organization Address City/[facility]/ZIP Co de Phone Number [facility] [address] [address], [place] [phone] * (ABNORMAL) LIPID PANEL W REFLEX MEASURED LDL (10/31/2024 10:02 AM CDT) CHOLESTEROL, TOTAL 216(H) <200 mg/dL 11/01/2024 4:25 AM CDT [facility] TRIGLYCERIDES 106 <150 mg/dL 11/01/2024 4:25 AM CDT [facility] HDL CHOLESTEROL 85 > OR = 50 mg/dL 11/01/2024 4:25 AM CDT [facility] NON HDL CHOLESTEROL 131(H) <130 mg/dL (calc) 11/01/2024 4:25 AM CDT [facility] Comment: For patients with diabetes plus 1 major ASCVD risk factor, treating to a non-HDL-C goal of <100 mg/dL (LDL-C of <70 mg/dL) is considered a therapeutic option. CHOL/HDLC RATIO 2.5 <5.0 (calc) 11/01/2024 4:25 AM CDT [facility] LDL-CHOLESTEROL 110(H) mg/dL (calc) 11/01/2024 4:25 AM CDT [facility] Comment: Reference range: <100 Desirable range <100 mg/dL for primary prevention; <70 mg/dL for patients with CHD or diabetic patients with > or = 2 CHD risk factors. LDL-C is now calculated using the Gerald-Ben calculation, which is a validated novel method providing better accuracy than the Friedewald equation in the estimation of LDL-C. Gerald SS et al. KIRK. 2013;310(19): 3443-2520 (http://education.[employer]/faq/JUU934) Blood BLOOD SPECIMEN / Unknown [facility] / Unknown 10/31/2024 10:02 AM CDT 10/31/2024 10:02 AM CDT us Shania Dorsey DO CHEMISTRY Final Resul t [facility] [address] [place] [address], * (ABNORMAL) VITAMIN D 25 (DEFICIENCY) (10/31/2024 10:02 AM CDT) VITAMIN D,25-OH,TOTAL,IA 28(L) 30 - 100 ng/mL 11/01/2024 3:43 AM CDT [facility] Comment: Vitamin D Status 25-OH Vitamin D: Deficiency: <20 ng/mL Insufficiency: 20 - 29 ng/mL Optimal: > or = 30 ng/mL For 25-OH Vitamin D testing on patients on D2-supplementation and patients for whom quantitation of D2 and D3 fractions is required, the [facility]ure[facility](TM) 25-OH VIT D, (D2,D3), LC/MS/MS is recommended: order code 36629 (patients >2yrs). See Note 1 Note 1 For additional information, please refer to http://education.Dinetouch/faq/NDA208 (This link is being provided for informational/ educational purposes only.) Blood BLOOD SPECIMEN / Unknown [facility] / Unknown 10/31/2024 10:02 AM CDT 10/31/2024 10:02 AM CDT us Shania Dorsey DO SEND OUTS Final Resul t Performing Organization Address [facility]/ZIP Co de Phone Number [facility] [address] [address], [place] [phone] * FOLIC ACID (10/31/2024 10:02 AM CDT) [facility] FOLATE, SERUM >24.0 ng/mL 11/01/2024 3:43 AM CDT [facility] Comment: Reference Range Low: <3.4 Borderline: 3.4-5.4 Normal: >5.4 Blood BLOOD SPECIMEN / Unknown [facility] / Unknown 10/31/2024 10:02 AM CDT 10/31/2024 10:02 AM CDT us Shania Dorsey DO CHEMISTRY Final Resul t Performing Organization Address [facility] Co de Phone Number [facility] [address] [address], [place] [phone] * VITAMIN B12 (10/31/2024 10:02 AM CDT) VITAMIN B12 363 200 - 1100 pg/mL 11/01/2024 3:43 AM CDT [facility] Comment: Please Note: Although the reference range for vitamin B12 is 200-1100 pg/mL, it has been reported that between 5 and 10% of patients with values between 200 and 400 pg/mL may experience neuropsychiatric and hematologic abnormalities due to occult B12 deficiency; less than 1% of patients with values above 400 pg/mL will have symptoms. Blood BLOOD SPECIMEN / Unknown [facility] / Unknown 10/31/2024 10:02 AM CDT 10/31/2024 10:02 AM CDT us Shania Dorsey DO CHEMISTRY Final Resul t [facility] [address] [place] [address], * COMP METABOLIC PANEL (10/31/2024 10:02 AM CDT) SODIUM 137 135 - 146 mmol/L 11/01/2024 4:25 AM CDT [facility] POTASSIUM 4.0 3.5 - 5.3 mmol/L 11/01/2024 4:25 AM CDT [facility] CHLORIDE 104 98 - 110 mmol/L 11/01/2024 4:25 AM CDT [facility] CARBON DIOXIDE 25 20 - 32 mmol/L 11/01/2024 4:25 AM CDT [facility] GLUCOSE 96 65 - 99 mg/dL 11/01/2024 4:25 AM CDT [facility] Comment: Fasting reference interval CALCIUM 9.8 8.6 - 10.2 mg/dL 11/01/2024 4:25 AM CDT [facility] CREATININE 0.83 0.50 - 0.99 mg/dL 11/01/2024 4:25 AM CDT [facility] BUN/CREATININE RATIO SEE NOTE: (calc) 11/01/2024 4:25 AM CDT [facility] Comment: Not Reported: BUN and Creatinine are within reference range. EGFR 90 > OR = 60 mL/min/1. 73m2 11/01/2024 4:25 AM CDT [facility] ALBUMIN 4.4 3.6 - 5.1 g/dL 11/01/2024 4:25 AM CDT [facility] PROTEIN, TOTAL 6.4 6.1 - 8.1 g/dL 11/01/2024 4:25 AM CDT [facility] BILIRUBIN, TOTAL 0.9 0.2 - 1.2 mg/dL 11/01/2024 4:25 AM CDT [facility] ALKALINE PHOSPHATASE 58 31 - 125 U/L 11/01/2024 4:25 AM CDT [facility] ALT 12 6 - 29 U/L 11/01/2024 4:25 AM CDT [facility] AST 15 10 - 30 U/L 11/01/2024 4:25 AM CDT [facility] UREA NITROGEN (BUN) 12 7 - 25 mg/dL 11/01/2024 4:25 AM CDT [facility] GLOBULIN 2.0 1.9 - 3.7 g/dL (calc) 11/01/2024 4:25 AM CDT [facility] ALBUMIN/GLOBULI N RATIO 2.2 1.0 - 2.5 (calc) 11/01/2024 4:25 AM CDT [facility] Blood BLOOD SPECIMEN / Unknown [facility] / Unknown 10/31/2024 10:02 AM CDT 10/31/2024 10:02 AM CDT us Shania Dorsey DO CHEMISTRY Final Resul t [facility] [id number] [place] [address], * MOTHERS HELPER THIN PREP PAP AND HPV DNA - AGE 25 AND OVER ([facility]) (12/18/2023 11:02 AM CDT) CLINICAL INFORMATION [facility] Comment:None given LMP [facility] Comment:12/07/2023 PREV. PAP [facility] Comment:ASCUS AND NEGATIVE H PV IN 2020 PREV. BX [facility] Comment:DEON I SOURCE MOTHERS HELPER [facility] Comment:Cervix STATEMENT OF ADEQUACY [facility] Comment: Satisfactory for evaluation. Endocervical/transformation zone component absent. INTERPRETATION/RESU LT [facility] Comment: Cytology Results: Negative for intraepithelial lesion or malignancy. COMMENT [facility] Comment: This Pap test has been evaluated with computer assisted technology. YARD CALLER [facility] Comment: RRD, CT(ASCP) CT Screening location: [address] [address] THINPREP TIS PAP ALWAYS MESSAGE [facility] Comment: EXPLANATORY NOTE: The Pap is [...] HPV HIGH RISK Not Detected NOT DETECTED [facility] Comment: Not Detected High Risk HPV types (16,18,31,33,35,39,45,51,52, 56,58,59,66,68) were not detected. Other HPV types which cause anogenital lesions may be present. The significance of the other types of HPV in malignant processes has not been established. Methodology: Real Time PCR Other (Other) 12/18/2023 11: 02 AM CDT 12/19/2023 3:[address] [facility] - 12/21/2023 11:02 PM CDT SPLIT 12/18/2023 FROM [id number] Faith Fisher MD PATHOLOGY/CYTOLOGY Sabra barba Result [address] [address], [address] [address] * HIV 1/2 ANTIGEN/ANTIBODY FOURTH GENERATION W/RFL ([facility]) (12/18/2023 10:36 AM CDT) HIV AG/AB, 4TH GEN NON-REACT ROSENDA NON-REACT [facility] Comment: HIV-1 antigen and HIV-1/HIV-2 antibodies were [...] purpose. For additional information please refer to http://Kiio.[employer]/faq/TTV784 (This link is being provided for informational/ educational purposes only.) The performance of this assay has not been clinically validated in patients less than 2 years old. Blood BLOOD SPECIMEN / Unknown 12/18/2023 10:36 AM CDT 12/18/2023 10:37 AM CDT Narrative [facility] - 12/20/2023 1:12 AM CDT SPECIMEN COLLECTED AT PROVIDER OFFICE. us Faith Fisher MD SEND OUTS Final R esult [facility] [address] [place] [address], [facility] [address] [place] [address] * ANTI HCV (12/18/2023 10:36 AM CDT) HEPATITIS C ANTIBODY NON-REACTI VE NON-REACT ROSENDA [facility] Comment: HCV antibody was non-reactive. There is no laboratory evidence of HCV infection. In most cases, no further action is required. However, if recent HCV exposure is suspected, a test for HCV RNA (test code 27155) is suggested. For additional information please refer to http://Kiio.[employer].Process [employer]/faq/YQS62g0 (This link is being provided for informational/ educational purposes only.) Blood BLOOD SPECIMEN / Unknown 12/18/2023 10:36 AM CDT 12/18/2023 10:37 AM CDT Narrative [facility] - 12/20/2023 1:12 AM CDT SPECIMEN COLLECTED AT PROVIDER OFFICE. us Faith Fisher MD SEND OUTS Final R esult [facility] [address] [facility] [address], [place] [phone] [facility] [address] [place] [address] from Last 3 Months or Most Recently Relevant to Health Maintenance Insurance [facility] Advance Directives * Full Code (Latest Code Status on File) Date Activated Date Inactivated Comments 07/20/2008 2:23 AM 07/22/2008 4:17 PM Care Teams Special Skills Officer Relationship Specialty [place] [address] [place] [address] PCP - General Family Practice 12/18/23
--- OUTSIDE RECORDS SUMMARY | 2024-11-01 13:35 | XMS_ITS | Encounter Summary ---
Author Organization [facility] Address [address] [place] [address]. [place] [address] Care Team Providers Care Thai Masseur Name Role Phone Conrado Bhatia MD Primary Care Provider [phone] System, Provider Not In Primary Care Provider Un available Faith Greenfield APRN [facility] Primary Care Provi jacob Conrado Bhatia MD Unavailable Conrado Bhatia MD Unavailable Daniel Villanueva PA-C Unavailable + [phone] Coming Teresa Olson MD Unavailable + [phone] Coming Teresa Olson MD Unavailable + [phone] Encounter Details Date Type Department Care Team (Late st Contact Info) Description 01/02/2012 MyC Medical Advice [facility] [address] [facility] [place], [address] [place] [address] [place] [address] [place] [address] Social History Tobacco Use Types Packs/Day Years Used Date Smoking Tobacco: Every Day Cigarettes Alcohol Use Standard Drinks/Week Comments Yes 0 (1 standard drink = 0.6 oz pur e alcohol) occ Comments No Sex and Gender Information Value Date Recorded Sex Assigned at Not on file 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 Gender Identity Not on file Sexual Orientation Not on file documented as of this encounter Plan of Treatment Not on file documented as of this encounter Visit Diagnoses Not on filedocumented in this encounter Care Teams Thai Masseur Relationship Specialty Start Date End Date Conrado Bhatia MD PCP - General Family Practice 11/28/11 04/29/13 System, Provider Not In PCP - General Clinic 04/30/13 08/20/14 Faith Greenfield APRN MARKETING FINANCE SPECIALIST PCP - General Nurse Practitioner - Family 08/21/14 [place] [address] [address] [place] [id number] PCP - Assigned PCP 07/18/15 05/14/18 [place] [address] [place] [address] Assigned PCP 07/18/15 10/19/18 Daniel Villanueva PA-C [address] [place] [address] [id number] Assigned PCP 10/20/18 05/10/19 [place] [address] [place], [place] [id number] Assigned PCP 05/11/19 02/24/22 [place] [address] [place], [place] [id number] Assigned PCP 05/06/22 12/15/22 documented as of this encounter
--- OUTSIDE RECORDS SUMMARY | 2024-11-01 13:35 | XMS_ITS | Clinical Summary ---
Author Organization [facility] Address [address] [place] [id number] Care Team Providers Care Records Clerk Name Role Phone Faith Greenfield APRN, CNP Primary Care Provi jacob Allergies Active Allergy Reactions Criticality Noted Date Comments Shellfish-Derived Products 9 Shrimp Itching 06/23/2015 Medications EPINEPHrine (EPIPEN/ADRENAC LICK/OR ANY BX GENERIC EQUIV) 0.3 MG/0.3ML injection 2-packIndicatio ns:Shellfish allergy Inject 0.3 mLs (0.3 mg) into the muscle as needed for anaphylaxis 2 each 9 Active multivitamin w/minerals (THERA-VIT-M) tablet Take 1 tablet by mouth daily Active Vitamin D, Cholecalciferol , 25 MCG (1000 UT) TABS Active Magnesium Citrate 100 MG TABS Active fish oil-omega-3 fatty acids 1000 MG capsule Take 2 g by mouth daily Active HEMP OIL OR EXTRACT OR OTHER CBD CANNABINOID, NOT MEDICAL CANNABIS, Active Active Problems Problem Noted Date Diagnosed Date CARDIOVASCULAR SCREENING; LDL GOAL LESS THAN 160 11/28/2011 Resolved Problems Problem Noted Date Diagnosed Date Resolved Date History of gestational diabe angel mellitus (GDM) 08/20/2015 05/07/2019 Panic attack 06/23/2015 12/15/2019 Kidney stone 10/25/2007 05/07/2019 Overview (05/07/2019): Overview: CT 10/25/2007: 1. Bilateral renal collecting system [...] T-type IUD in situ. Dysthymic disorder 08/01/2007 0 Supervision of other normal 08/22/2005 05/07/2019 Immunizations Immunization Administration Dates Next Due Influenza Vaccine >6 months,quad, PF 12/26/2016 TD,PF 7+ ([facility]) 08/20/2014 Family History Medical History Relation Comments Cardiovascular Father Cerebrovascular Disease Father Diabetes Father Type 2 Hypertension Father Lipids Father Depression Mother Relation Status Comments Brother Alive Daughter Alive Father Mother Alive Sister 1 Alive Sister 2 Alive Son Alive Social History Tobacco Use Types Packs/Day Years Used Date Smoking Tobacco: Former Cigarettes Smokeless Tobacco: Never Tobacco Cessation:Ready to Q uit: Yes; Counseling Given: Yes Comments:Former 3 cigarettes a day smoker, now smokes socially if drinking Alcohol Use Standard Drinks/Week Comments Yes 6 (1 standard drink = 0.6 oz pur e alcohol) occ AUDIT-C Answer Date Recorded Q1: How often do you have a drink containing alc ohol? 2-3 times a week 12/15/2019 Q2: How many drinks containi ng alcohol do you have on a typical day when you are drinking? 3 or 4 12/15/2019 Q3: How often do you have si x or more drinks on one occasion? Less than monthly 12/15/2019 PHQ-2 Answer Date Recorded PHQ-2 Score 0 12/15/2019 Adolescent Education Answer Date Record ed Getting School Help Needed Not on file 12/16 Comments No Sex and Gender Information Value Date Recorded Sex Assigned at Not on file Legal Sex Female 2:58 AM TECHNOLOGY METHODOLOGY CONSULTANT Gender Identity Not on file Sexual Orientation Not on file Last Filed Vital Signs Vital Sign Reading Time Taken Comments Blood Pressure 120/81 12/15/2019 10:56 AM CDT Pulse 70 12/15/2019 10:56 AM CDT Temperature 36.7 C (98 F) 12/15/2019 10:56 AM CDT Respiratory Rate 18 05/07/2019 8:19 AM TECHNOLOGY METHODOLOGY CONSULTANT Oxygen Saturation 98% 12/15/2019 10:56 AM CDT Inhaled Oxygen Concentration - - Weight 55.8 kg (123 lb) 12/15/2019 10:56 AM CDT Height 161.3 cm (5' 3.5) 05/07/2019 8:19 AM TECHNOLOGY METHODOLOGY CONSULTANT Body Mass Index 21.45 05/07/2019 8:19 AM TECHNOLOGY METHODOLOGY CONSULTANT Plan of Treatment Not on file Medical Devices Implanted Type Area Suction Plate Roller Hand Device Identifier Shelf Expiration Date Model / Serial / Lot Stent Ureteral Dbl Pigtail Inlay [id number] Implanted:Qty: [address] on 02/[address] eRyes MD at [facility] Right: Ureter [employer] 12/09/2016 [id number] / / [id number] Care Teams Records Clerk Relationship Specialty Start Date End Date Faith Greenfield APRN GRIEVANCE AND APPEALS COORDINATOR PCP - General Nurse Practitioner - Family 08/21/14
--- NOTE | 2024-11-01 14:16 | CRLHL7_ITS ---
For Patients: As a result of the Cures Act, medical imaging exams and procedure reports are released immediately into your electronic medical record. You may view this report before your referring provider. If you have questions, please contact your health care provider. INDICATION: Chest pain TECHNIQUE: Chest radiograph 2 views COMPARISON: None FINDINGS: Mediastinum: The mediastinum is normal in appearance. The heart silhouette is normal in size and morphology. Lung: Both lungs are unremarkable in appearance. No sign of pleural effusion seen. No pneumothorax is identified. Bone and Soft tissue: Unremarkable for age. Bilateral breast implants are noted. A cutaneous glucose monitoring device is seen over the anterior left chest wall. IMPRESSION: 1. No acute cardiopulmonary disease is seen. Dictated by Kuldeep Mercado MD @ 11/01/2024 2:55:24 PM Dictated by: Kuldeep Mercado MD @ 11/01/2024 14:55:39 (Electronically Signed)
[2024-11-01 14:38] LABS: Troponin, Point-of-Care* 0.00 ng/ml (0.01-0.04)
[2024-11-01 14:42] LABS: Hematocrit 45.1 % (33.0-51.0); Hemoglobin* 15.5 gm/dL (12.0-16.0); Immature Granulocytes Pct Auto 0.9 %; Mean Corpuscular HGB Conc 34 gm/dL (32-36); Mean Corpuscular Hemoglobin 32 pg (26-34); Mean Corpuscular Volume 92 fL (80-100); RDW Coefficient of Variation % 11.8 % (11.5-15.5); Red Blood Count 4.92 m/uL (4.00-5.20); White Blood Count* 11.80 K/uL (4.50-11.00)
[2024-11-01 14:46] LABS: Chloride* 104 mmol/L (96-114); Immature Granulocytes Abs Auto 0.10 K/uL (0.00-0.30); Lymphocytes Absolute Auto 2.10 K/uL (0.90-2.90); Potassium* 4.5 mmol/L (3.6-5.1); Slide Review Reflex No; Sodium* 134 mmol/L (135-149)
[2024-11-01 14:48] LABS: INR 0.88 (0.91-1.10); Prothrombin Time 12.7 Seconds
[2024-11-01 14:49] LABS: Anion Gap 6 mEq/L (7-15); Blood Urea Nitrogen* 15 mg/dL (5-24); Calcium* 9.7 mg/dL (8.4-10.6); Carbon Dioxide* 24 mmol/L (20-32); Creatinine* 0.7 mg/dL (0.5-1.5); Est. Creatinine Clearance* 85.72; Estimated Glomerular Filt Rate 110 ml/min; Glucose* 109 mg/dL (60-115)
[2024-11-01 14:52] LABS: D Dimer Quantitative* 0.29 ug/ml (0.00-0.50)
--- NOTE | 2024-11-01 15:03 | CRLHL7_ITS ---
For Patients: As a result of the Century Cures Act, medical imaging exams and procedure reports are released immediately into your electronic medical record. You may view this report before your referring provider. If you have questions, please contact your health care provider. INDICATION: Headaches. TECHNIQUE: Noncontrast CT of the head with multiplanar reconstruction utilizing bone and soft tissue algorithms. COMPARISON: None available. FINDINGS: No acute intracranial hemorrhage. The verdugo-white matter interface is preserved. The ventricles are normal in size. No abnormal extra-axial fluid collection is identified. Normal calvarium and skull base. Symmetric globes. The imaged paranasal sinuses and mastoid air cells are clear. IMPRESSION: No acute intracranial abnormality. Please note that all CT scans at this facility use dose modulation, iterative reconstruction, and/or weight-based dosing when appropriate to reduce radiation dose to as low as reasonably achievable. Dictated by Sher Salinas MD @ 11/01/2024 3:52:16 PM (Electronically Signed)
--- NOTE | 2024-11-01 15:34 | ED.CHESTPAIN ---
HPI - Chest Pain General Date Seen: 11/01/24 Chief Complaint: Chest Pain Stated Complaint: chest pain Time Seen by Provider: 11/01/24 13:48 Source: patient, family, EMS, RN notes reviewed and old records reviewed Mode of arrival: EMS Limitations: no limitations History of Present Illness HPI narrative: Patient is a very nice 44-year-old female who presents here by EMS for chest pain and abdominal indigestion, she sat down at approximately 30 minutes before being seen in developed left-sided chest pain and pounding, she also endorses tingling in her hands and her feet, she was seen yesterday in clinic for similar symptoms and had a Zio patch placed as well as echo scheduled. She was started on propranolol for this, and also now tracks on because she has been under a lot of stress and has been drinking more alcohol. She describes the chest pain on the left side of her chest, with radiation to her left shoulder, it has markedly gone away now after EMS had given her 4 baby aspirins. She did not vomit, she has had no exertional dyspnea, she tells me that there is no shortness of breath associated with this. She has a no previous history of cardiac problems with she has a positive family history with her father dying in his early 50s with cardiac concerns. Recently has been to her doctor and has an elevated LDL at 110. She does not have diabetes and has been never told that she has high blood pressure she does smoke. No use of drugs, she works for [employer], in [place] She is with her mother, and boyfriend is here. She tells me that there was a lot of stress around her child. 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 She thinks there is a history in the family however of aneurysms. No history in the family of renal disease. She describes the headache as pounding worse on the left than the right side. MD complaint: chest pain Prior episodes: Yes Risk Factors Coronary artery disease risk factors: smoking history, hyperlipidemia and family history of CAD before age 50 Thoracic aortic dissection risk factors: none Related Data On Oral Contraceptives: No Home Medications ?Medication ?Instructions ?Recorded ?Confirmed Celexa 07/28/22 trazodone 50 mg PO HS 07/28/22 02/22/24 cyanocobalamin (vitamin B-12) 1,000 mcg PO DAILY 02/20/24 02/22/24 1,000 mcg tablet lorazepam 0.5 mg tablet 0.5 mg PO QID PRN 02/20/24 02/22/24 magnesium citrate 100 mg capsule 100 mg PO DAILY 02/20/24 02/22/24 naltrexone 50 mg tablet 50 mg PO DAILY 11/01/24 11/01/24 propranolol 20 mg tablet 20 mg PO BID 11/01/24 11/01/24 Previous Rx's ?Medication ?Instructions ?Recorded hydrocodone 5 mg-acetaminophen 325 1 tab PO Q6H PRN pain #15 tabs 02/22/24 mg tablet sennosides 8.6 mg capsule (senna) 8.6 mg PO DAILY PRN constipation 02/22/24 #90 caps Allergies Allergy/AdvReac Type Severity Reaction Status Date / Time shrimp Allergy itching Verified 11/01/24 13:41 Review of Systems Status of ROS Reports: 10 or more systems reviewed and unremarkable except as noted in History and below [facility] Medical History Vitamin B12 deficiency ?E53.8 - Deficiency of other specified B group vitamins (ICD-10) PMDD (premenstrual dysphoric disorder) ?F32.81 - Premenstrual dysphoric disorder (ICD-10) Panic attacks ?F41.0 - Panic disorder [episodic paroxysmal anxiety] (ICD-10) Kidney stones ?N20.0 - Calculus of kidney (ICD-10) Generalized anxiety disorder ?F41.1 - Generalized anxiety disorder (ICD-10) Depressive disorder, not elsewhere classified ?F32.89 - Other specified depressive episodes (ICD-10) Complex ovarian cyst ?N83.299 - Other ovarian cyst, unspecified side (ICD-10) Breast mass, right ?N63.10 - Unspecified lump in the right breast, unspecified quadrant (ICD-10) Surgical History History of colposcopy ?Z98.890 - Other specified postprocedural states (ICD-10) History of bunionectomy ?Z98.890 - Other specified postprocedural states (ICD-10) Hx of breast augmentation ?Z98.82 - Breast implant status (ICD-10) Social History Smoking Status: Current every day smoker What tobacco products do you use: cigarettes Smoking packs per day: 0.1 Smoking cigarettes per day: 2.0 Years smoked: 20 Smoking pack-years: 2.00 Smoking quit date/years: <= 15 years ago Do you use any of these nicotine containing products: Vaping Products How often do you have a drink containing alcohol: 4 or more times a week Alcohol type: beer, wine and hard liquor How many standard drinks containing alcohol do you have on a typical day: 3 or 4 How often do you have six or more drinks on one occasion: Weekly AUDIT-C Alcohol total score: 8 Non-prescribed substance use: marijuana (any form) Non-prescribed substance use details: smoke Caffeine: Yes Are you using contraception or practicing any form of control: No Exam Narrative Exam Narrative: On examination in room 5 she is in no apparent distress she is pleasant alert, her pupils are equal round reactive to light her TMs are normal her oropharynx is normal there is no nystagmus cranial nerves 3-12 are normal, excellent smile mouth opening is normal. Normal teeth, no lymphadenopathy anterior posterior chains her carotid upstrokes are equal bilaterally with no carotid bruits no meningismus, chest is good air entry bilateral with no wheezing or crackles noted, easy respirations her heart sounds no clicks murmurs or gallops, are noted. Abdomen is soft there is no guarding no organomegaly no masses, no tenderness to palpation no CVA tenderness, her lower extremity show no swelling no edema, no tenderness to palpation normal pulses. She moves all extremities independently and well, both her right and her left, and she is distally and proximally strong with 5/5 strength, she is able to walk normally. Const Vital Signs, click to edit/add: Vital Signs - 24 hr 11/01/24 13:37 11/01/24 13:38 11/01/24 13:41 Temperature 98.6 F Pulse Rate 59 L 65 Pulse Rate [Pulse Oximeter] 99 Respiratory Rate 14 13 18 Blood Pressure 142/103 H Blood Pressure [Right Upper Arm] 142/103 H Pulse Oximetry 97 98 99 Oxygen Delivery Method Room Air 11/01/24 13:41 11/01/24 13:45 11/01/24 14:00 Temperature Pulse Rate 63 61 69 Pulse Rate [Pulse Oximeter] Respiratory Rate 15 18 19 Blood Pressure 153/94 H Blood Pressure [Right Upper Arm] Pulse Oximetry 96 97 97 Oxygen Delivery Method 11/01/24 14:02 11/01/24 14:15 11/01/24 14:16 Temperature Pulse Rate 60 57 L Pulse Rate [Pulse Oximeter] Respiratory Rate 21 15 Blood Pressure 132/90 H Blood Pressure [Right Upper Arm] Pulse Oximetry 97 97 96 Oxygen Delivery Method 11/01/24 14:31 11/01/24 14:32 11/01/24 14:45 Temperature Pulse Rate 59 L 66 Pulse Rate [Pulse Oximeter] Respiratory Rate 12 14 17 Blood Pressure 123/95 H Blood Pressure [Right Upper Arm] Pulse Oximetry 99 97 Oxygen Delivery Method 11/01/24 14:55 11/01/24 15:00 11/01/24 15:01 Temperature Pulse Rate 58 L 74 59 L Pulse Rate [Pulse Oximeter] Respiratory Rate 23 20 Blood Pressure 118/76 124/84 Blood Pressure [Right Upper Arm] Pulse Oximetry 98 95 98 Oxygen Delivery Method 11/01/24 15:15 11/01/24 15:30 11/01/24 15:31 Temperature Pulse Rate 61 62 65 Pulse Rate [Pulse Oximeter] Respiratory Rate 15 20 15 Blood Pressure 138/85 Blood Pressure [Right Upper Arm] Pulse Oximetry 99 99 100 Oxygen Delivery Method Room Air 11/01/24 15:32 11/01/24 15:45 11/01/24 16:00 Temperature Pulse Rate 67 57 L 56 L Pulse Rate [Pulse Oximeter] Respiratory Rate 14 19 13 Blood Pressure Blood Pressure [Right Upper Arm] Pulse Oximetry 98 100 100 Oxygen Delivery Method 11/01/24 16:01 11/01/24 16:15 11/01/24 16:30 Temperature Pulse Rate 59 L 61 61 Pulse Rate [Pulse Oximeter] Respiratory Rate 17 Blood Pressure 124/81 Blood Pressure [Right Upper Arm] Pulse Oximetry 100 99 98 Oxygen Delivery Method 11/01/24 16:31 11/01/24 16:45 11/01/24 17:00 Temperature Pulse Rate 64 71 76 Pulse Rate [Pulse Oximeter] Respiratory Rate 16 20 25 H Blood Pressure 118/80 Blood Pressure [Right Upper Arm] Pulse Oximetry 98 98 98 Oxygen Delivery Method 11/01/24 17:02 11/01/24 17:15 11/01/24 17:30 Temperature Pulse Rate 63 61 68 Pulse Rate [Pulse Oximeter] Respiratory Rate 18 22 Blood Pressure 119/82 Blood Pressure [Right Upper Arm] Pulse Oximetry 99 99 98 Oxygen Delivery Method 11/01/24 17:31 11/01/24 17:45 Temperature Pulse Rate 59 L 72 Pulse Rate [Pulse Oximeter] Respiratory Rate 18 15 Blood Pressure 114/76 Blood Pressure [Right Upper Arm] Pulse Oximetry 98 98 Oxygen Delivery Method Course Course ED Course: Second troponin was negative, her testing for D-dimer was negative her head CTA was negative along with a neck CTA, she improved here with fluids, and the aspirin I do think that this might be is a little bit of reflux along with the anxiety and stress that is ongoing with her. I do think taking her medications for propranolol and her naltrexone is a good idea. She was not drinking alcohol with a dull tracks own. Taking some Prilosec 20 mg a day would also be helpful for reflux, and I counseled her to do this I would like her to follow up with her regular physician, and consider other further testing such as a stress echo, but the present time I think we have ruled out a lot here and I feel comfortable letting her to go home, we went over worsening signs and symptoms and she will return if these occur. Vital Signs Vital signs: Initial Vital Signs Pulse Rate 59 L 11/01/24 13:37 Respiratory Rate 14 11/01/24 13:37 Blood Pressure 142/103 H 11/01/24 13:37 Blood Pressure Mean 116 H 11/01/24 13:37 Pulse Oximetry 97 11/01/24 13:37 Vital Signs Pulse Rate 59 L 11/01/24 13:37 Respiratory Rate 14 11/01/24 13:37 Blood Pressure 142/103 H 11/01/24 13:37 Pulse Oximetry 97 11/01/24 13:37 Temperature 98.6 F 11/01/24 13:41 Pulse Rate 72 11/01/24 17:45 Respiratory Rate 15 11/01/24 17:45 Blood Pressure 114/76 11/01/24 17:31 Pulse Oximetry 98 11/01/24 17:45 Oxygen Delivery Method Room Air 11/01/24 15:31 Medications Administered Medications: Discontinued Medications Generic Name Dose Route Start Last Admin Trade Name Freq PRN Reason Stop Dose Admin Sodium Chloride 1,000 mls @ 1,000 mls/hr 11/01/24 14:30 11/01/24 16:19 0.9 % Sodium Chloride 1000 Ml IV 11/01/24 15:29 Infused .Q1H RANJEET Infusion MDM - Chest Pain MDM Narrative Medical decision making narrative: During the evaluation of this patient I considered multiple differential diagnosis is. The life-threatening differential diagnosis include coronary disease/NH, pulmonary embolism, pneumothorax, pneumonia, and aortic dissection. Other differential diagnosis included but were not limited to pericarditis, myocarditis, chest wall pain, GERD, esophageal rupture, rib fracture contusion, pleurisy, as well as other etiologies. Life-threatening differential diagnosis include subarachnoid hemorrhage, meningitis, encephalitis, carbon monoxide poisoning, and intracerebral hemorrhage. Other differential diagnosis include but not limited to migraine, cluster headache, tension headache, FOOD VENDOR vasculitis, mass lesion, temporal arteritis, click acute closed angle glaucoma, septal and trigeminal neuralgia, sinusitis, closed head injury, and stroke Medical Records Data Attestation: I reviewed the patient's medical records. Lab Data Attestation: I reviewed the patient's lab results. Labs: Lab Results 11/01/24 11/01/24 11/01/24 Range/Units 14:17 14:23 17:33 WBC 11.80 H (4.50-11.00) K/uL RBC 4.92 (4.00-5.20) m/uL Hgb 15.5 (12.0-16.0) gm/dL Hct 45.1 (33.0-51.0) % MCV 92 (80-100) fL MCH 32 (26-34) pg MCHC 34 (32-36) gm/dL RDW Coeff of Emely 11.8 (11.5-15.5) % Plt Count 288 (140-440) K/uL Neut % (Auto) 74.2 H (42.0-72.0) % Lymph % (Auto) 17.5 L (20-44) % [place] % (Auto) 5.4 (0.0-11.0) % Eos % (Auto) 1.8 (0.0-7.0) % Baso % (Auto) 0.2 (0.0-3.0) % Neut # (Auto) 8.80 H (1.7-7.0) K/uL Lymph # (Auto) 2.10 (0.90-2.90) K/uL [place] # (Auto) 0.60 (0.00-0.90) K/UL Eos # (Auto) 0.20 (0.00-0.50) K/uL Baso # (Auto) 0.00 (0.00-0.30) K/uL Abs Immat Gran (auto) 0.10 (0.00-0.30) K/uL Imm/Tot Granulo (auto) 0.9 % INR 0.88 L (0.91-1.10) APTT 25 (23-33) Seconds D-Dimer Quant (PE/DVT) 0.29 (0.00-0.50) ug/ml Sodium 134 L (135-149) mmol/L Potassium 4.5 (3.6-5.1) mmol/L Chloride 104 (96-114) mmol/L Carbon Dioxide 24 (20-32) mmol/L Anion Gap 6 L (7-15) mEq/L BUN 15 (5-24) mg/dL Creatinine 0.7 (0.5-1.5) mg/dL Estimated Creat Clear 85.72 Estimated GFR 110 ml/min Glucose 109 (60-115) mg/dL Calcium 9.7 (8.4-10.6) mg/dL C-Reactive Protein 0.5 (0.5-1.0) mg/dL POC Troponin I 0.00 L 0.00 L (0.01-0.04) ng/ml Imaging Data Head CT: Attestation: I have reviewed the pertinent imaging results. My impression: I reviewed the radiology and there is no evidence of any bleeding, or abnormality, both her head CT, neck CT intracranial CT. I did these because of the possibility of aneurysmal disease with her worst headache of her life. I do not think I need to tap her based on this. I also discussed with her her sure about allergy issues to be an issue, had radiology come over and talk with her also. And I feel comfortable as she does with using CT contrast. Radiologist's impression: [address] [address] Diagnostic Imaging Report Patient: Dedra Valentine MR#: [id number] : 1980 Acct:[id number] Loc: ED Service Date: 11/01/[address]: Ordering Physician: Haim Ambriz M.D. Date of Service: 11/01/24 Procedure(s): CT head/brain wo con Accession Number(s): [id number] cc: Faith Fisher M.D.; Haim Ambriz M.D.~ For Patients: As a result of the Cures Act, medical imaging exams and procedure reports are released immediately into your electronic medical record. You may view this report before your referring provider. If you have questions, please contact your health care provider. INDICATION: Headaches. TECHNIQUE: Noncontrast CT of the head with multiplanar reconstruction utilizing bone and soft tissue algorithms. COMPARISON: None available. FINDINGS: No acute intracranial hemorrhage. The verdugo-white matter interface is preserved. The ventricles are normal in size. No abnormal extra-axial fluid collection is identified. Normal calvarium and skull base. Symmetric globes. The imaged paranasal sinuses and mastoid air cells are clear. IMPRESSION: No acute intracranial abnormality. Please note that all CT scans at this facility use dose modulation, iterative reconstruction, and/or weight-based dosing when appropriate to reduce radiation dose to as low as reasonably achievable. Dictated by Sher Salinas MD @ 11/01/2024 3:52:16 [place] [address] Diagnostic Imaging Report Patient: Dedra Valentine MR#: [id number] : 1980 Acct:[id number] Loc: ED Service Date: 11/01/[address]: Ordering Physician: Haim Ambriz M.D. Date of Service: 11/01/24 Procedure(s): XR chest 2V Accession Number(s): [id number] cc: Faith Fisher M.D.; Haim Ambriz M.D.~ For Patients: As a result of the Cures Act, medical imaging exams and procedure reports are released immediately into your electronic medical record. You may view this report before your referring provider. If you have questions, please contact your health care provider. INDICATION: Chest pain TECHNIQUE: Chest radiograph 2 views COMPARISON: None FINDINGS: Mediastinum: The mediastinum is normal in appearance. The heart silhouette is normal in size and morphology. Lung: Both lungs are unremarkable in appearance. No sign of pleural effusion seen. No pneumothorax is identified. Bone and Soft tissue: Unremarkable for age. Bilateral breast implants are noted. A cutaneous glucose monitoring device is seen over the anterior left chest wall. IMPRESSION: 1. No acute cardiopulmonary disease is seen. Dictated by Kuldeep Mercado MD @ 11/01/2024 2:55:24 PM Dictated by: Kuldeep Mercado MD @ 11/01/2024 14:55:39 [place] [address] Diagnostic Imaging Report Patient: Dedra Valentine MR#: [id number] : 1980 Acct:[id number] Loc: ED Service Date: 11/01/[address]: Ordering Physician: Haim Ambriz M.D. Date of Service: 11/01/24 Procedure(s): CT angio neck Accession Number(s): [id number] cc: Faith Fisher M.D.; Haim Ambriz M.D.~ For Patients: As a result of the Cures Act, medical imaging exams and procedure reports are released immediately into your electronic medical record. You may view this report before your referring provider. If you have questions, please contact your health care provider. DATE: 11/01/2024 CLINICAL HISTORY: Patient with headaches. TECHNIQUE: Standard helical CT image acquisition through the head and neck was performed after intravenous contrast bolus enhancement. 2D and 3D MIP images for post-processing were performed and interpreted on an independent workstation and 3D images were permanently archived. COMPARISON: CT same day. FINDINGS: The origins of the great vessels from the aortic arch are patent. The origin of the right vertebral artery is patent. The origin of the left vertebral artery is patent. The common carotid arteries are patent There is no stenosis at the origin of the right internal carotid artery. There is no stenosis at the origin of the left internal carotid artery. The rest of the cervical segments of the internal carotid arteries are patent up to their intracranial segments. The intracranial segments of the internal carotid arteries are patent. The vertebral arteries are codominant. The cervical segments of the vertebral arteries are patent. The intracranial segments of the vertebral arteries are patent. The middle cerebral arteries are normal without aneurysm or proximal occlusion identified. The anterior cerebral arteries are normal without aneurysm or proximal occlusion identified. The anterior communicating artery is well visualized and appears normal. The basilar artery is normal without aneurysm or occlusion. The posterior cerebral arteries are normal without aneurysm or proximal occlusion. There is normal opacification of major intracranial venous structures. The visualized lung apices are unremarkable The thyroid gland is unremarkable. The soft tissues of the neck are unremarkable. There are degenerative changes in the cervical spine. IMPRESSION: Normal CT angiogram of the head and neck. Please note that all CT scans at this facility use dose modulation, iterative reconstruction, and/or weight-based dosing when appropriate to reduce radiation dose to as low as reasonably achievable. Dictated by Rustam Liao MD @ 11/01/2024 7:11:34 PM (Electronically Signed) (Electronically Signed)(Electronically Signed) ECG Data Attestation: I personally reviewed and interpreted this ECG as follows: ECG interpretation date: 11/01/24 Prior ECG tracings: not available for review Interpretation: EKG shows normal sinus rhythm, with mild bradycardia at 52. No acute ST wave changes, QRS QT QTC are normal Discharge Plan Discharge Clinical Impression: Chest pain, Stress, Acid reflux, Anxiety about health, Headache Patient Disposition: Home, Self-Care Condition: Improved Instructions: Chest Pain (DC), Stress (ED), GERD (Gastroesophageal Reflux Disease) (DC), Acute Headache (DC), General Headache (ED), Panic Attack (ED) Additional Instructions: Home, rest, use of Prilosec (omeprazole) this is [id number]-[id number]-nutpeyl 20 mg a day, best place to buy this I feel is [facility], take it for 30 days at 1 tablet a day, try to decrease her caffeine also, that will help also the symptoms of your heart, continue her medications as directed, I do not find any evidence of a heart issue here today but please follow-up within your doc within a week, also discussed. I do think her headache might be also related to stress, and I am hopeful once medications kick in this will help. Return as needed for worsening chest pain shortness of breath or other issues. Activity Level: Light activity Prescriptions: No Action trazodone 50 mg PO HS Celexa Patient Comments: every other day cyanocobalamin (vitamin B-12) 1,000 mcg tablet 1,000 mcg PO DAILY lorazepam 0.5 mg tablet 0.5 mg PO QID PRN magnesium citrate 100 mg capsule 100 mg PO DAILY hydrocodone-acetaminophen 5-325 mg tablet 1 tab PO Q6H PRN (Reason: pain) Qty: 15 0RF senna 8.6 mg capsule 8.6 mg PO DAILY PRN (Reason: constipation) Qty: 90 0RF naltrexone 50 mg tablet 50 mg PO DAILY propranolol 20 mg tablet 20 mg PO BID Follow Up/Referrals: Faith Fisher MD [Primary Care Provider, Family Practice] Stand Alone Forms: [facility] Info Instructions
[2024-11-01 18:26] LABS: Troponin, Point-of-Care* 0.00 ng/ml (0.01-0.04)
== END 2024-11-01 18:43 | disposition home or self-care (01) ==
PROVIDERS: Emergency Provider Family Medicine; PCP Family Medicine
DX: R07.9 Chest pain, unspecified (principal); K21.9 Gastro-esophageal reflux disease without esophagitis; F41.9 Anxiety disorder, unspecified; R51.9 Headache, unspecified
CPT/HCPCS: 36415; 70450; 70496; 70498; 71046; 80048; 84484; 85025; 85379; 85610; 85730; 86140; 93005; 94761; 99285; J7030; Q9967